=== PATIENT | female | born 1965 | race Caucasian/White ===

== ENCOUNTER → 2021-09-05 | Outpatient (CLI) | payer OTHER ==
[~2021-09-05] MED LIST: AMLO-250 PO; AMOX-358 PO; HYDR-3730 PO; IPRA3AMP31 INH; LISI-592 PO; LISI1TAB46 PO; MELO15TA39 PO; NEBU1EAC10 MC; NEBU1EAC2 MC; NF-ESOM40C PO; NYST1000 PO; ONDA4TAB8 PO; PROM25TA14 PO; RANI-613 PO; SIMV10TA PO; SIMV10TA26 PO
== END ==
LOC: ORTHO 11:20
PROVIDERS: ATTEND Orthopaedic Surgery
DX: M77.11 Lateral epicondylitis, right elbow (principal)
CPT/HCPCS: 20551

== ENCOUNTER → 2022-03-20 | Outpatient (CLI) | payer OTHER | LOC: ORTHO 09:24 | PROVIDERS: ATTEND Orthopaedic Surgery | DX: M77.11 Lateral epicondylitis, right elbow (principal) | CPT/HCPCS: 20551 ==

== ENCOUNTER → 2022-10-10 | Outpatient (CLI) | payer OTHER ==
[~2022-10-10] MED LIST changes: +SIMV-332 PO; -SIMV10TA PO
== END ==
LOC: ORTHO 09:17
PROVIDERS: ATTEND Orthopaedic Surgery
DX: M77.01 Medial epicondylitis, right elbow (principal)
CPT/HCPCS: 99213

== ENCOUNTER 2022-10-24 17:38 | Inpatient (IN) | payer OTHER ==
[~2022-10-24] VITALS: Ht 167.7 cm; Wt 97.7 kg
[2022-10-24 19:05] VITALS: BP 131/71
--- OUTSIDE RECORDS SUMMARY | 2022-10-24 19:11 | XMS REPORT | Clinical Summary ---
Author Author [facility] Organization [facility] Address Unknown Phone Unavailable Care Team Providers Care Customer Facilities Supervisor Name Role Phone PCP Unavailable Source Comments [facility] (Labor and Delivery) documents do not appear in the [facility] Allergies Not on File Medications Please verify current medications with patient. Not on file Active Problems Not on file Social History Date Tobacco Use Types Packs/Day Years Used Smoking Tobacco: Never Assessed Sex Assigned at Date Recorded Not on file Last Filed Vital Signs Not on file Plan of Treatment Health Maintenance Due Date Last Done Comments CT Colonography 1965 Colonoscopy 1965 Colorectal Cancer 1965 Screening DNA-based stool test 1965 (Cologuard) Hepatitis B Vaccine (1 of 1965 3 - 3-dose series) Mammogram 1965 Sigmoidoscopy 1965 gFOBT or FIT 1965 COVID-19 Vaccine (#1) 1965 Influenza Vaccine (#1) 2022 HPV Vaccine Aged Out No longer eligible based on patient's age to complete this topic Hepatitis A Vaccine Aged Out No longer eligible based on patient's age to complete this topic Hib Vaccine Aged Out No longer eligible based on patient's age to complete this topic IPV Vaccine Aged Out No longer eligible based on patient's age to complete this topic Meningococcal Vaccine Aged Out No longer eligib le based on patient's age to (MCV4) complete this topic Pneumococcal Vaccine: Aged Out No longer eligib le based on patient's age to Pediatrics (0 to 5 Years) complete this topic and At-Risk Patients (6 to 64 Years) Rotavirus Vaccine Aged Out No longer eligible based on patient's age to complete this topic Results Not on filefrom Last 3 Months
--- OUTSIDE RECORDS SUMMARY | 2022-10-24 19:11 | XMS REPORT | Clinical Summary ---
Author Author [facility] Organization [facility] Address Unknown Phone Unavailable Care Team Providers Care Automotive Manufacturer Name Role Phone PCP Unavailable Source Comments Some departments are not documenting in the electronic medical record. If you d o not see the information that you expected, contact Release of Information in [facility] Information Management department at [phone] for further assistan ce in locating additional records.[facility] Allergies Not on File Medications Not on file Active Problems Not on file Social History Date Tobacco Use Types Packs/Day Years Used Smoking Tobacco: Never Assessed Sex Assigned at Date Recorded Not on file Last Filed Vital Signs Not on file Plan of Treatment Health Maintenance Due Date Last Done Comments COVID-19 VACCINE (#1) 1965 HIV SCREENING 1980 DTAP/TDAP VACCINES (1 - 1983 Tdap) HEPATITIS C SCREENING 1983 PHYSICAL (COMPREHENSIVE) 1983 EXAM CERVICAL CANCER SCREENING 1986 BREAST CANCER SCREENING 2005 COLORECTAL CANCER 2010 SCREENING SHINGLES RECOMBINANT 2015 VACCINE (1 of 2) INFLUENZA VACCINE (#1) 2022 DEPRESSION SCREENING 10/14/2022 Results Not on filefrom Last 3 Months
[2022-10-24] MEDS ORDERED: MILK OF MAGNESIA 400 MG/5 ML 30 ML UDC PO PRN (19:15)
[2022-10-24] MEDS ORDERED: VANCOMYCIN INJECTION 0.1 MG in NS (IVPB) 250 ML IV SCH (19:15)
[2022-10-24] MEDS ORDERED: ONDANSETRON 4 MG/2 ML (SDV) Z0FRAN IV PRN (19:15)
[2022-10-24] MEDS ORDERED: ANTACID SUSP 30 ML UDC (MYLANTA) PO PRN (19:15)
[2022-10-24 19:38] LABS: POTASSIUM 3.4 MMOL/L (3.6-5.0)
[2022-10-24 19:39] LABS: CALCIUM 8.4 MG/DL (8.5-10.1)
[2022-10-24 19:43] LABS: CREATININE SERUM 0.75 MG/DL (0.60-1.30)
[2022-10-24] MEDS: ACETAMINOPHEN 325 MG TABLET PO PRN ×2 (19:43→23:53)
[2022-10-24] MEDS: LACTATED RINGERS 1,000 ML IV SCH (19:43)
[2022-10-24] MEDS ORDERED: VANCOMYCIN 1,750 MG/NS 500 ML IVPB IV NR ×2 (19:45)
[2022-10-24] MEDS ORDERED: VANCOMYCIN 750 MG/VIAL IV ONE (19:56)
[2022-10-24] MEDS ORDERED: VANCOMYCIN 1000 MG/VIAL ONE (19:56)
[2022-10-24] MEDS ORDERED: NS IV 500 ML 0 ML ONE (20:10)
[2022-10-24] MEDS ORDERED: oxyCODONE/APAP 5/325MG (PERCOCET 5) TABLET PO PRN ×2 (21:00→22:15)
[2022-10-24] MEDS ORDERED: oxyCODONE/APAP 5/325MG (PERCOCET 5) TABLET ONE (21:35)
[2022-10-24] MEDS ORDERED: IBUPROFEN 600 MG (MOTRIN) TAB PO ONE (22:21)
[2022-10-24] MEDS: CELECOXIB 100 MG (CeleBREX) CAP PO SCH (22:24)
[2022-10-24] MEDS: PREGABALIN 100 MG (LYRICA) CAPSULE PO SCH (22:24)
[2022-10-24] MEDS ORDERED: IBUPROFEN 600 MG (MOTRIN) TAB PO PRN ×2 (22:30→22:45)
[2022-10-24 23:10] VITALS: BP 116/59
[2022-10-25] VITALS (7 sets, daily range): BP systolic 96–134; BP diastolic 53–63
[2022-10-25] MEDS: MELATONIN 3 MG TABLET PO PRN (01:41)
[2022-10-25] MEDS: LACTATED RINGERS 1,000 ML IV SCH ×4 (05:19→23:45)
[2022-10-25 05:53] LABS: BASOPHILS % (AUTO) 0 % (0-10); HEMATOCRIT 31 % (35-52); MEAN CORPUSCULAR VOLUME 102 fL (80-99)
[2022-10-25 05:55] LABS: EOSINOPHILS # (AUTO) 0.1 10^3/uL (0.0-0.3); EOSINOPHILS % (AUTO) 1 % (0-10); HEMOGLOBIN 10.1 g/dL (11.5-16.0); LYMPHOCYTES % (AUTO) 14 % (12-44); MEAN CORPUSCULAR HEMOGLOBIN 33 pg (25-34); MEAN CORPUSCULAR HGB CONC 32 g/dL (32-36); MEAN PLATELET VOLUME 11.5 fL (9.0-12.2); MONOCYTES # (AUTO) 0.5 10^3/uL (0.0-1.0); MONOCYTES % (AUTO) 7 % (0-12); NEUTROPHILS # (AUTO) 5.6 10^3/uL (1.8-7.8); NEUTROPHILS % (AUTO) 78 % (42-75); PLATELET COUNT 83 10^3/uL (130-400); WHITE BLOOD COUNT 7.2 10^3/uL (4.3-11.0)
[2022-10-25 06:01] LABS: ALBUMIN 3.3 GM/DL (3.2-4.5); POTASSIUM 3.1 MMOL/L (3.6-5.0)
[2022-10-25 06:03] LABS: CALCIUM 8.3 MG/DL (8.5-10.1)
[2022-10-25 06:04] LABS: TOTAL PROTEIN 6.8 GM/DL (6.4-8.2)
[2022-10-25 06:06] LABS: BILIRUBIN,TOTAL 0.5 MG/DL (0.1-1.0)
[2022-10-25 06:07] LABS: CREATININE SERUM 0.97 MG/DL (0.60-1.30)
[2022-10-25] MEDS: VANCOMYCIN 1500 MG/NS 500 ML IVPB IV SCH ×4 (08:51→20:11)
[2022-10-25] MEDS: PREGABALIN 100 MG (LYRICA) CAPSULE PO SCH ×2 (08:52→20:11)
[2022-10-25] MEDS: CELECOXIB 100 MG (CeleBREX) CAP PO SCH ×2 (08:52→20:11)
--- NOTE | 2022-10-25 09:43 | History & Physical-Hospitalist ---
JESICA ROBERTSON 10/25/22 0943: History of Present Illness HPI/Chief Complaint 57 year old female with history of sjogren Syndrome, Hypertension, anxiety, ar thritis, and ongoing cellulitis with drainage of left elbow area presented to the hospital today as a transfer from [facility] for right elbow cellulitis. She reports this began originally at the beginning of September and she reports spending a few days at [facility] before being discharged on Clindamycin which she reports taking for the past month. It was beginning to improve, but she developed fever and chills yesterday as well as slightly altered mental status prior to presenting to [facility]'s ED. She reports feeling better this morning than yesterday. She is A/O x3 at this time and denies lightheadedness, Dizziness, CP, SOB, abd pain, N/V/D. She has been having a headache. Date Seen 10/25/22 Time Seen by a Provider: 09:20 Attending Physician Nicky Franklin MD PCP Admitting Physician: Kris Jean-Baptiste MD Attending Physician: Kris Jean-Baptiste MD Referring Physician Date of Admission Oct 24, 2022 at 19:07 Home Medications & Allergies Home Medications Reviewed patient Home Medication Reconciliation performed by pharmacy medication reconciliations loss control technician and/or nursing. Patients Allergies have been reviewed. Allergies Allergies Coded Allergies procaine (Verified Allergy, Unknown, 01/09/16) Past [id number]-[id number] Hx Patient Social History Tobacco Use?: Yes Tobacco type used: Cigarettes (1/2 ppd x 41 years) Smoking Status: Current Everyday Smoker Smokeless Tobacco Frequency: Never a User Use of E-Cig and/or Vaping dev: No Use of E-Cig and/or Vaping Velasquez: Never a User Substance use?: No Alcohol Use?: No Pt feels they are or have been: No Current Status Advance Directives: Unable to obtain Communicates: Verbally Primary Language: Belgian Preferred Spoken Language: Belgian Is interpretation needed?: No Implanted or Applied Medical D: None Past Medical History Surgeries: Abdominal (reports multiple esophageal procedures for ruptured esophagus in the past), Section, Gallbladder (cholecystectomy) Pneumonia High Cholesterol, Hypertension Gastroesophageal Reflux Adverse Reaction/Blood Tranf: No Review of Systems Constitutional: chills, fever EENTM: No hearing loss, No vision loss Respiratory: No cough, No dyspnea on exertion, No hemoptysis, No short of breath Cardiovascular: No chest pain, No edema Gastrointestinal: No abdominal pain, No constipation, No diarrhea, No nausea, No vomiting Genitourinary: No dysuria, No hematuria Musculoskeletal: joint pain Skin: change in color (redness/swelling of right elbow) Psychiatric/Neurological: Anxiety Physical Exam Physical Exam Vital Signs Vital Signs - First Documented 10/24/22 19:05 Temp 39.0 Pulse 96 Resp 20 B/P (MAP) 131/71 (91) Pulse Ox 94 O2 Delivery Room Air Capillary Refill : Height, Weight, BMI Height: 5'6" Weight: 210lbs. 3.2oz. [id number]; 34.66 BMI Method:Stated General Appearance: No Apparent Distress, WD/WN Eyes: Bilateral Eye PERRL, Bilateral Eye EOMI HEENT: PERRL/EOMI, Pharynx Normal, Moist Mucous Membranes Neck: Non Tender, Supple Respiratory: Chest Non Tender, No Accessory Muscle Use, No Respiratory Distress, Wheezing Cardiovascular: Regular Rate, Rhythm, No Murmur, Normal Peripheral Pulses Gastrointestinal: Normal Bowel Sounds, Non Tender, Soft Back: No CVA Tenderness, No Vertebral Tenderness Extremity: Normal Capillary Refill, Non Tender, No Calf Tenderness Neurologic/Psychiatric: Alert, Oriented x3, No Motor/Sensory Deficits, Normal Mood/Affect, bankruptcy law specialist II-XII Norm as Tested Skin: Diaphoresis, Erythema (erythema and swelling of right elbow with small area of serous drainage) Lymphatic: No Adenopathy Results Results/Procedures Labs Laboratory Tests 10/24/22 19:22 10/25/22 05:25 Patient resulted labs reviewed. Assessment/Plan Assessment and Plan Severe sepsis secondary to Cellulitis of Right Elbow Patient was febrile, tachycardic, and had Lactic acidosis at [place] prior to transfer here. On going cellulitis of right elbow for going on a month and a half. WBC today of 7.2 Patient has had a fever as high as 40 degrees celsius since arriving, and BP as low of 96/57 mmHg. Vancomycin 1.5g IV BID. previous wond cultures have only grown MRSA. Ortho Consulted. Dr. Marte plans to operate tomorrow to open and clean wound and sinus tract. Hypokalemia K+Cl 50ml IV QD + K+Cl 40mEq PO QD. recheck tomorrow Anemia Hgb of 10.1 today. Pt. reports anemia is secondary to hydroxychloroquine she was taking for Sjogren Syndrome and that she recently stopped taking it per her doctors recommendation. Sjogren Syndrome Managed outpatient by Dr. Briscoe through [place] per patient. see above. Hypertension Takes Losartan 50mg QD at home. Will hold BP medications at this time given BP of 96/57 mmHg. Anxiety Takes Sertraline 100mg PO QD at home. Will continue Arthritis Will restart home meds of celecoxib 200mg QD and pregabalin 100mg BID. Smoking history 20.5 pack year smoking history. Patient denies needing nicotine patch. Denies history of COPD. Counseled patient on benefits of quitting. May benefit from albuterol nebulizer treatment given wheezing on exam. KRIS JEAN-BAPTISTE MD 10/25/22 2071: Assessment/Plan Admission Diagnosis Severe Sepsis Admission Status: Inpatient Order (span 2 midnights) Reason for Inpatient Admission: see below Assessment and Plan Patient presented to outside emergency department due to recurrent cellulitis of right elbow after failing outpatient antibiotics. She was febrile and tachycardic with a lactic acidosis of 2.2. She had actually been admitted at that facility last month and received multiple days of IV antibiotics and was referred to orthopedic surgery as an outpatient. She had seen Dr. Marte and had continued on oral antibiotics but despite this her cellulitis returned. She was transferred here for further management and orthopedic consultation while inpatient. This morning she reports feeling about the same but having pain in her elbow. She states Dr. MARTE is already seen her and is planning on surgery tomorrow morning. We will continue IV antibiotics and adjust her pain regimen. Await cultures and sensitivities from the operating room to further tailor antibiotics. Fever broke this AM. Will DC ibuprofen as she is on Celebrex and requeests to continue this. Will resume other home meds as appropriate. NPO after midnight. She was wheezing slightly and had a cough so will add MAT protocol. Is a multiple pack year history smoker but denies any lung issues from this and states wheezing clears with cough. Supervisory-Addendum Brief Verification & Attestation Participated in pt care: history, MDM, physical Personally performed: exam, history, MDM, supervision of care Care discussed with: Medical Student Procedures: n/a Results interpretation: Verified all documentation Verification and Attestation of Medical Student E/M Service A medical student performed and documented this service in my presence. I reviewed and verified all information documented by the medical student and made modifications to such information, when appropriate. I personally performed the physical exam and medical decision making. Kris Jean-Baptiste, Oct 25, 2022,14:07 JESICA ROBRETSON Oct 25, 2022 09:43 KRIS JEAN-BAPTISTE MD Oct 25, 2022 13:57
--- NOTE | 2022-10-25 11:29 | Consultation - Ortho ---
Consult - Ortho Subjective Date of Exam 10/25/22 Chief Complaint right arm draining/pain HPI/Events since last exam patient known to me from office, had a prior "lancing" of an area on her arm, history of HO in forearm/elbow, had had constant drainage, recurrent cellulitis Medical, Surgical History see admit Social History see admit Family History see admit Review of Systems - Allergies: Coded Allergies: procaine (Verified Allergy, Unknown, 01/09/16) Home Meds Active Scripts Nebulizer (Nebulizer W/Compressor) 1 Pkt Each, 1 EACH MC UD, #1 Prov:CHARLENE BUSTILLO DO 01/18/16 Nebulizer (Nebulizer With Adult Mask) 1 Pkt Each, 1 EACH MC UD, #1 Prov:CHARLENE BUSTILLO DO 01/18/16 Nebulizer (Nebulizer W/Compressor) 1 Pkt Each, 1 EACH MC UD for COPD, #1 Prov:CHARLENE BUSTILLO DO 01/18/16 Nebulizer (Nebulizer With Adult Mask) 1 Pkt Each, 1 EACH MC UD, #1 Prov:CHARLENE BUSTILLO DO 01/18/16 Amoxicillin/Potassium Clav (Augmentin 875-125 Tablet) 1 Each Tablet, 1 EACH PO BID, #14 TAB Prov:CHARLENE BUSTILLO DO 01/18/16 Amlodipine Besylate (Amlodipine Besylate) 5 Mg Tablet, 5 MG PO DAILY, #30 TAB Prov:CHARLENE BUSTILLO DO 01/18/16 Ipratropium/Albuterol Sulfate (Iprat-Albut 0.5-3(2.5) mg/3 ml) 3 Ml Ampul.neb, 3 ML INH RTQ4HR, #90 INHALER 1 Refill Prov:CHARLENE BUSTILLO DO 01/18/16 Nystatin (Nystatin) 100,000 Unit/1 Ml Oral.susp, 5 ML PO Q6HR, #8 ML 1 Refill Prov:CHARLENE BUSTILLO DO 01/18/16 Hydrocodone/Acetaminophen (Lortab 7.5-325 mg Tablet) 1 Each Tablet, 1 TAB PO Q6H PRN for PAIN, #30 Prov:CHARLENE BUSTILLO DO 01/18/16 Reported Medications Ranitidine HCl (Zantac) 150 Mg Tablet, 150 MG PO BID 01/10/16 Simvastatin (Simvastatin) 10 Mg Tablet, 10 MG PO HS 01/10/16 Lisinopril/Hydrochlorothiazide (Lisinopril-Hctz 20-12.5 mg Tab) 1 Each Tablet, 1 TAB PO DAILY 01/10/16 Ondansetron (Zofran Odt) 4 Mg Tab.rapdis, 4 MG PO Q6H PRN for NAUSEA/VOMITING 01/09/16 Meloxicam (Meloxicam) 15 Mg Tablet, 15 MG PO DAILY 01/09/16 Esomeprazole Magnesium (Nexium) 40 Mg Cap, 40 MG PO DAILY 01/09/16 Objective Exam Right arm: erythematous around posterior aspect of elbow and down forearm; has formed sinus tract in forearm with continued chalky drainage Vital Signs Vital Signs Date Time Temp Pulse Resp B/P (MAP) Pulse Ox O2 Delivery O2 Flow Rate FiO2 10/25/22 11:22 37.4 72 18 98/59 (72) 92 Room Air 10/25/22 07:41 36.6 61 18 96/57 (70) 90 Room Air 10/25/22 04:59 37.3 71 20 103/53 (70) 92 Room Air 10/25/22 00:23 38.4 10/24/22 23:53 38.9 10/24/22 23:10 38.9 89 20 116/59 (78) 91 Room Air 10/24/22 22:23 40.0 10/24/22 20:13 38.6 10/24/22 19:43 39.0 10/24/22 19:20 94 Room Air 10/24/22 19:05 39.0 96 20 131/71 (91) 94 Room Air I & O 10/25/22 07:00 Intake Total 1867.5 ml Output Total 300 ml Balance 1567.5 ml Lab Results Laboratory Tests 10/24/22 19:22: Sodium Level 137, Potassium Level 3.4L, Chloride Level 109H, Carbon Dioxide Level 17L, Anion Gap 11, Blood Urea Nitrogen 11, Creatinine 0.75, Estimat Glomerular Filtration Rate 93, BUN/Creatinine Ratio 15, Glucose Level 104, Lactic Acid Level 1.39, Calcium Level 8.4L 10/25/22 05:25: Sodium Level 137, Potassium Level 3.1L, Chloride Level 108H, Carbon Dioxide Level 19L, Anion Gap 10, Blood Urea Nitrogen 16, Creatinine 0.97, Estimat Glomerular Filtration Rate 68, BUN/Creatinine Ratio 16, Glucose Level 99, Calcium Level 8.3L, White Blood Count 7.2, Red Blood Count 3.06L, Hemoglobin 10.1L, Hematocrit 31L, Mean Corpuscular Volume 102H, Mean Corpuscular Hemoglobin 33, Mean Corpuscular Hemoglobin Concent 32, Red Cell Distribution Width 15.9H, Platelet Count 83L, Mean Platelet Volume 11.5, Immature Granulocyte % (Auto) 1, Neutrophils (%) (Auto) 78H, Lymphocytes (%) (Auto) 14, Monocytes (%) (Auto) 7, Eosinophils (%) (Auto) 1, Basophils (%) (Auto) 0, Neutrophils # (Auto) 5.6, Lymphocytes # (Auto) 1.0, Monocytes # (Auto) 0.5, Eosinophils # (Auto) 0.1, Basophils # (Auto) 0.0, Immature Granulocyte # (Auto) 0.1, Percent Immature Platelet Fraction 6.3, Corrected Calcium 8.9, Total Bilirubin 0.5, Aspartate Amino Transf (AST/SGOT) 19, Alanine Aminotransferase (ALT/SGPT) 13, Alkaline Phosphatase 58, Total Protein 6.8, Albumin 3.3 Assessment and Plan Assessment Right forearm abscess with sinus tract Problem List Right forearm abscess with sinus tract Plan Will proceed with incision and drainage in AM. Plan for closure of the sinus tract. Discussed procedure with the patient. Will obtain cultures at that time. Final Diagonsis Right forearm abscess with sinus tract Level of the visit: Level 3 (preop) ANGELY MARTE MD Oct 25, 2022 11:29
[2022-10-25] MEDS: fentaNYL INJ 100 MCG/2 ML AMP IVP PRN ×2 (15:37→20:16)
[2022-10-25] MEDS ORDERED: PREG100C55 PO (15:57)
[2022-10-25] MEDS ORDERED: CELE100C84 PO (15:57)
[2022-10-25] MEDS ORDERED: LOSA50TA63 PO (15:57)
[2022-10-25] MEDS ORDERED: OXYC1TAB11 PO (15:57)
[2022-10-25] MEDS ORDERED: FURO20TA4 PO (15:57)
[2022-10-25] MEDS ORDERED: CHOL10004 PO (15:57)
[2022-10-25] MEDS ORDERED: SERT-414 PO (15:57)
[2022-10-25] MEDS ORDERED: OMEP40CA6 PO (15:57)
[2022-10-25] MEDS ORDERED: POTA8CAP20 PO (15:57)
[2022-10-25] MEDS ORDERED: AMLO2.5T4 PO (15:57)
[2022-10-25] MEDS ORDERED: CYAN500T8 PO (15:57)
[2022-10-25] MEDS ORDERED: NF-PILO5T PO ×2 (15:57)
[2022-10-25] MEDS: ACETAMINOPHEN 325 MG TABLET PO PRN ×2 (16:21→23:44)
[2022-10-25] MEDS: oxyCODONE/APAP 5/325MG (PERCOCET 5) TABLET PO PRN ×2 (16:26→23:02)
[2022-10-26] VITALS (13 sets, daily range): BP systolic 106–147; BP diastolic 51–77
[2022-10-26] MEDS: fentaNYL INJ 100 MCG/2 ML AMP IVP PRN ×5 (00:59→22:51)
[2022-10-26] MEDS: MELATONIN 3 MG TABLET PO PRN (01:02)
[2022-10-26] MEDS: LACTATED RINGERS 1,000 ML IV SCH ×3 (06:06→16:36)
[2022-10-26 06:11] LABS: BASOPHILS % (AUTO) 0 % (0-10); EOSINOPHILS # (AUTO) 0.1 10^3/uL (0.0-0.3); EOSINOPHILS % (AUTO) 2 % (0-10); HEMATOCRIT 28 % (35-52); HEMOGLOBIN 9.2 g/dL (11.5-16.0); LYMPHOCYTES # (AUTO) 1.2 10^3/uL (1.0-4.0); LYMPHOCYTES % (AUTO) 18 % (12-44); MEAN CORPUSCULAR HEMOGLOBIN 34 pg (25-34); MEAN CORPUSCULAR HGB CONC 33 g/dL (32-36); MEAN CORPUSCULAR VOLUME 103 fL (80-99); MEAN PLATELET VOLUME 11.7 fL (9.0-12.2); MONOCYTES # (AUTO) 0.7 10^3/uL (0.0-1.0); MONOCYTES % (AUTO) 10 % (0-12); NEUTROPHILS # (AUTO) 4.7 10^3/uL (1.8-7.8); NEUTROPHILS % (AUTO) 70 % (42-75); PLATELET COUNT 69 10^3/uL (130-400); WHITE BLOOD COUNT 6.7 10^3/uL (4.3-11.0)
[2022-10-26 06:27] LABS: ALBUMIN 3.1 GM/DL (3.2-4.5)
[2022-10-26 06:28] LABS: POTASSIUM 3.1 MMOL/L (3.6-5.0)
[2022-10-26 06:29] LABS: CALCIUM 8.7 MG/DL (8.5-10.1)
[2022-10-26 06:30] LABS: TOTAL PROTEIN 6.6 GM/DL (6.4-8.2)
[2022-10-26 06:32] LABS: BILIRUBIN,TOTAL 0.3 MG/DL (0.1-1.0)
[2022-10-26 06:34] LABS: CREATININE SERUM 0.92 MG/DL (0.60-1.30)
[2022-10-26] MEDS ORDERED: SEVOFLURANE (ULTANE) 15 ML INHAL SOLN ONE ×2 (07:35→09:50)
[2022-10-26] MEDS ORDERED: MIDAZOLAM 2 MG/2 ML (VERSED) VIAL ONE (07:35)
[2022-10-26] MEDS ORDERED: ONDANSETRON 4 MG/2 ML (SDV) Z0FRAN ONE (07:35)
[2022-10-26] MEDS ORDERED: proPOfol 200 MG/20 ML (DIPRIVAN) VIAL IV ONE (07:35)
[2022-10-26] MEDS ORDERED: LIDOCAINE PF 2% 5 ML (XYLOCAINE) VIAL ONE (07:35)
[2022-10-26] MEDS ORDERED: fentaNYL INJ 100 MCG/2 ML AMP ONE (07:35)
[2022-10-26] MEDS ORDERED: TROUGH ORDER-PHARMACY XX NR (08:00)
[2022-10-26] MEDS ORDERED: LACTATED RINGERS 1,000 ML IV PRN (08:30)
[2022-10-26] MEDS ORDERED: KETOROLAC 30 MG/ML VIAL ONE (09:48)
--- NOTE | 2022-10-26 09:58 | Operative Report - Ortho ---
Operative Report Surgeon (s)/Supervisor Waterworks (s) Surgeon ANGELY MARTE MD Supervisor Waterworks n/a Pre-Operative Diagnosis Right Forearm Abscess with Draining Sinus Tract Post-Operative Diagnosis same Operative Report Date of Procedure: Oct 26, 2022 Name of Procedure Performed: Incision and Drainage of Right Forearm Abscess Description & Findings After obtaining informed consent and marking the patient in the preop holding area, the patient was taken to the operating room and general anesthesia was induced. Surgical timeout was taken. The right upper extremity was prepped and draped in the usual sterile fashion. Incision was made extending the area around the sinus tract and the sinus tract was excised. There was return of purulent material; swab culture was sent. Rongeur and currette were used to debride the wall of the abscess. There were calcifications in the soft tissue which were also excised. Pulsatile lavage was utilized to irrigate the cavity with 3 L of normal saline. Attention was then turned to a more proximal site that had a raised whitish area; this was ellipsed and had immediate return of purlent material. The incision was extended. A swab culture was obtained. This area was also debrided with currette and rongeur. Pulsatile lavage was used to irrigate this area with 3 L of normal saline as well. The wounds were closed with 3-0 nylon suture. Wounds were dressed with xeroform, 4x4s, ABD, Kerlix, and KURTIS wraps. Patient tolerated the procedure well and was stable to the recovery room. Anesthesia Type General Estimated Blood Loss 100 mL Specimen(s) collected/removed Swab culture x2 ANGELY MARTE MD Oct 26, 2022 09:58
[2022-10-26] MEDS ORDERED: ONDANSETRON 4 MG/2 ML (SDV) Z0FRAN IVP PRN (10:00)
[2022-10-26] MEDS: VANCOMYCIN 1500 MG/NS 500 ML IVPB IV SCH ×4 (10:00→19:52)
[2022-10-26] MEDS ORDERED: HYDROmorphone 2 MG/ML VIAL (DILAUDID) IV ONE (10:00)
[2022-10-26] MEDS ORDERED: RT-ALBUTEROL SULF 2.5 MG/3 ML PRE-MIX VIAL ONE (10:12)
[2022-10-26] MEDS ORDERED: RT-ALBUTEROL SULF 2.5 MG/3 ML PRE-MIX VIAL INH ONE (11:00)
[2022-10-26] MEDS: CELECOXIB 100 MG (CeleBREX) CAP PO SCH ×2 (11:27→19:52)
[2022-10-26] MEDS: oxyCODONE/APAP 5/325MG (PERCOCET 5) TABLET PO PRN ×2 (11:28→17:10)
[2022-10-26] MEDS: PREGABALIN 100 MG (LYRICA) CAPSULE PO SCH ×2 (11:28→19:52)
[2022-10-26] MEDS ORDERED: PATIENT MAY USE OWN MED,SINGLE MED PO SCH ×2 (11:45)
[2022-10-26] MEDS ORDERED: NON-FORMULARY MEDICATION 1 EA EA (Pilocarpine (Salagen) 5 MG) PO PRN (12:00)
--- NOTE | 2022-10-26 12:28 | Anesthesia-General Post-Op ---
General Patient Condition Mental Status/LOC: Same as Preop Cardiovascular: Satisfactory Nausea/Vomiting: Absent Respiratory: Satisfactory Pain: Controlled Complications: Absent Post Op Complications Complications None Follow Up Care/Instructions Patient Instructions None needed. Anesthesia/Patient Condition Patient Condition Patient is doing well, no complaints, stable vital signs, no apparent adverse anesthesia problems. No complications reported per nursing. D/C home per [facility] Criteria: Yes LIANNE SHAFER CRNA Oct 26, 2022 12:28
[2022-10-26] MEDS ORDERED: PILOCARPINE 5 MG TABLET PO PRN (12:45)
[2022-10-26] MEDS: PILOCARPINE 5 MG TABLET PO SCH ×2 (12:46→17:10)
[2022-10-26] MEDS ORDERED: NON-FORMULARY MEDICATION 1 EA EA (Pilocarpine (Salagen) 5 MG) PO SCH (13:00)
--- NOTE | 2022-10-26 13:00 | Progress Note - Hospitalist ---
JESICA ROBERTSON 10/26/22 1300: Subjective HPI/CC On Admission 57 year old female with history of sjogren Syndrome, Hypertension, anxiety, arthritis, and ongoing cellulitis with drainage of left elbow area presented to the hospital today as a transfer from [facility] for right elbow cellulitis. She reports this began originally at the beginning of September and she reports spending a few days at [facility] before being discharged on Clindamycin w hich she reports taking for the past month. It was beginning to improve, but she developed fever and chills yesterday as well as slightly altered mental status prior to presenting to [place]'s ED. She reports feeling better this morning than yesterday. She is A/O x3 at this time and denies lightheadedness, Dizziness, CP, SOB, abd pain, N/V/D. She has been having a headache. Subjective/Events-last exam Patient was seen in her room shortly upon returning from her procedure this morning. Her course yesterday afternoon and overnight was largely uneventful. This morning Dr. Porras took her to the OR to open the wound on her right arm, during which he sent swabs for culture with results pending. Pt. continues to be on Vancomycin IV for the wound. Patient was still recovering from anesthesia at this time but reported feeling okay at that time with no headache, CP, SOB, abd pain, N/V/D. She reported being hungry. Review of Systems General: No Chills; Fatigue HEENT: No Head Aches, No Visual Changes Pulmonary: No Dyspnea, No Cough Cardiovascular: No: Chest Pain, Palpitations Gastrointestinal: No: Nausea, Vomiting, Abdominal Pain Genitourinary: No Dysuria, No Frequency Musculoskeletal: arm pain (right elbow) Neurological: Weakness, Numbness Focused Exam Lactate Level 10/24/22 19:22: Lactic Acid Level 1.39 Objective Exam Vital Signs Vital Signs Date Time Temp Pulse Resp B/P (MAP) Pulse Ox O2 Delivery O2 Flow Rate FiO2 10/26/22 11:50 36.2 67 16 126/73 (90) 97 Nasal Cannula 3.00 Capillary Refill : Less Than 3 Seconds General Appearance: No Apparent Distress, WD/WN, Other (Patient appeared tired) HEENT: No Moist Mucous Membranes Neck: Non Tender, Supple Respiratory: Chest Non Tender, Lungs Clear, No Accessory Muscle Use, No Respiratory Distress Cardiovascular: Regular Rate, Rhythm, No Murmur, Normal Peripheral Pulses Gastrointestinal: Non Tender, Soft, Other (decreased bowel sounds) Extremity: Normal Capillary Refill, Non Tender, No Calf Tenderness, No Pedal Edema, Other (Patients right elbow and forearm were wrapped from the mornings procedure. It appeared dry and intact with no discharge at that time.) Neurologic/Psychiatric: Alert, No Motor/Sensory Deficits, Normal Mood/Affect, wool dyer II-XII Norm as Tested, Other Skin: Normal Color, Warm/Dry Lymphatic: No Adenopathy Results/Procedures Lab Laboratory Tests 10/26/22 05:58 Patient resulted labs reviewed. Assessment/Plan Assessment and Plan Assess & Plan/Chief Complaint Severe sepsis secondary to Cellulitis of Right Elbow Patient was febrile, tachycardic, and had Lactic acidosis at [place] prior to transfer here 10/25. On-going cellulitis of right elbow for going on a month and a half. 10/26 WBC 6.7, minimally improved from 7.2 on 10/25 Patient has had a fever as high as 40 degrees celsius since arriving, and BP as low of 96/57 mmHg. Fever has resolved and BP has been improving. Vancomycin 1.5g IV BID. previous wound cultures have only grown MRSA. 10/26 Dr. Porras took patient to the OR to open, debride, and irrigate wound. Swabs were sent for culture. Will adjust abx if needed pending results. Hypokalemia 10/26 K+ of 3.1. K+Cl 50ml IV QD + K+Cl 40mEq PO QD and monitor Anemia 10/26 hgb 9.2 which is down from 10.1 yesterday. Pt. initially reported anemia secondary to hydroxychloroquine she was taking for Sjogren Syndrome and that she recently stopped taking it per her doctors recommendation. Todays worsening of anemia likely combination of dilutional from IV fluids and secondary to wound. Sjogren Syndrome Managed outpatient by Dr. Briscoe through [place] per patient. Will allow pt. to start taking Pilocarpine 5mg PO TID from home meds for dry mouth. Hypertension Takes Losartan 50mg QD at home. Will hold BP medications at this time given BP of 96/57 mmHg. Anxiety Takes Sertraline 100mg PO QD at home. Will continue Arthritis Will restart home meds of celecoxib 200mg QD and pregabalin 100mg BID. Smoking history 20.5 pack year smoking history. Patient denies needing nicotine patch. Denies history of COPD. Counseled patient on benefits of quitting. May benefit from albuterol nebulizer treatment given wheezing on exam. KRIS JEAN-BAPTISTE MD 10/26/22 1405: Assessment/Plan Assessment and Plan Assess & Plan/Chief Complaint Patient reports doing ok. Asking for food but still very sleepy. Just returned from the PACU. Advised her that she needs to wake up more before food. Discussed with her daughter plan to keep in the hospital for cultures through the weekend. Supervisory-Addendum Brief Verification & Attestation Participated in pt care: history, MDM, physical Personally performed: exam, history, MDM, supervision of care Care discussed with: Medical Student Procedures: n/a Results interpretation: Verified all documentation Verification and Attestation of Medical Student E/M Service A medical student performed and documented this service in my presence. I reviewed and verified all information documented by the medical student and made modifications to such information, when appropriate. I personally performed the physical exam and medical decision making. Kris Jean-Baptiste, Oct 26, 2022,13:56 JESICA ROBERTSON Oct 26, 2022 13:00 KRIS JEAN-BAPTISTE MD Oct 26, 2022 14:05
[2022-10-26] MEDS: POTASSIUM CL 10MEQ/50ML IVPB 50 ML IV SCH ×2 (13:18→14:21)
[2022-10-26] MEDS ORDERED: PREGABALIN 100 MG (LYRICA) CAPSULE PO SCH (21:00)
[2022-10-27] MEDS: fentaNYL INJ 100 MCG/2 ML AMP IVP PRN ×3 (01:43→12:57)
[2022-10-27] MEDS: LACTATED RINGERS 1,000 ML IV SCH ×2 (03:15→10:12)
[2022-10-27 03:51] VITALS: BP 119/63
[2022-10-27 05:58] LABS: BASOPHILS % (AUTO) 0 % (0-10); EOSINOPHILS % (AUTO) 0 % (0-10); HEMOGLOBIN 8.6 g/dL (11.5-16.0); MONOCYTES % (AUTO) 5 % (0-12)
[2022-10-27 05:59] LABS: HEMATOCRIT 26 % (35-52); LYMPHOCYTES # (AUTO) 0.8 10^3/uL (1.0-4.0); LYMPHOCYTES % (AUTO) 16 % (12-44); MEAN CORPUSCULAR HEMOGLOBIN 34 pg (25-34); MEAN CORPUSCULAR HGB CONC 33 g/dL (32-36); MEAN CORPUSCULAR VOLUME 103 fL (80-99); MEAN PLATELET VOLUME 11.9 fL (9.0-12.2); MONOCYTES # (AUTO) 0.3 10^3/uL (0.0-1.0); NEUTROPHILS % (AUTO) 78 % (42-75); PLATELET COUNT 70 10^3/uL (130-400); WHITE BLOOD COUNT 5.1 10^3/uL (4.3-11.0)
[2022-10-27 06:05] LABS: SMEAR SCAN COMMENT YES
[2022-10-27] MEDS: PILOCARPINE 5 MG TABLET PO SCH ×4 (06:07→18:31)
[2022-10-27] MEDS: oxyCODONE/APAP 5/325MG (PERCOCET 5) TABLET PO PRN ×4 (06:10→20:16)
[2022-10-27 06:17] LABS: ALBUMIN 3.2 GM/DL (3.2-4.5); BILIRUBIN,TOTAL 0.3 MG/DL (0.1-1.0); CALCIUM 9.2 MG/DL (8.5-10.1); CREATININE SERUM 0.78 MG/DL (0.60-1.30); POTASSIUM 3.7 MMOL/L (3.6-5.0); TOTAL PROTEIN 6.8 GM/DL (6.4-8.2)
[2022-10-27 07:45] VITALS: BP 125/63
[2022-10-27] MEDS ORDERED: NON-FORMULARY MEDICATION 1 EA EA (Omeprazole 40 MG) PO SCH (09:00)
--- NOTE | 2022-10-27 09:50 | Progress Note - Hospitalist ---
JESICA ROBERTSON 10/27/22 0950: Subjective HPI/CC On Admission Date Seen by Provider: Oct 27, 2022 Time Seen by Provider: 09:05 57 year old female with history of sjogren Syndrome, Hypertension, anxiety, arthritis, and ongoing cellulitis with drainage of left elbow area presented to the hospital today as a transfer from [facility] for right elbow cellulitis. She reports this began originally at the beginning of September and she reports spending a few days at [facility] before being discharged on Clindamycin wh ich she reports taking for the past month. It was beginning to improve, but she developed fever and chills yesterday as well as slightly altered mental status prior to presenting to [place]'s ED. She reports feeling better this morning than yesterday. She is A/O x3 at this time and denies lightheadedness, Dizziness, CP, SOB, abd pain, N/V/D. She has been having a headache. Subjective/Events-last exam Patient was awake and alert sitting in bed when seen this morning. She reports slight improvement since yesterday. She is still having intermittent chills and rates her right arm pain as 7/10. She is currently receiving fentanyl 35mcg Q1h PRN and Percocet 5/325mg Q6 PRN for pain control which she reports helps briefly. one of the two wound cultures initial report showed Gram (+) cocci with final results still pending at this time. Of note her Hgb today is 8.6 which is decreased from 9.2 on 10/26 and 10.1 on 10/25. Patient denies chest pain, palpitations, SOB, abd pain, N/V/D, dysuria at this time. She has not had a BM since admission but is urinating well. Review of Systems General: Chills, Fatigue HEENT: Head Aches; No Visual Changes Pulmonary: No Dyspnea; Cough (mild) Cardiovascular: No: Chest Pain, Palpitations, Orthopnea Gastrointestinal: No: Nausea, Vomiting, Abdominal Pain, Diarrhea Genitourinary: No Dysuria, No Frequency Musculoskeletal: arm pain (7/10 right arm pain) Neurological: No: Weakness, Numbness Focused Exam Lactate Level 10/24/22 19:22: Lactic Acid Level 1.39 Objective Exam Vital Signs Vital Signs Date Time Temp Pulse Resp B/P (MAP) Pulse Ox O2 Delivery O2 Flow Rate FiO2 10/27/22 11:29 36.3 58 20 122/71 (88) 96 Room Air 10/26/22 11:50 3.00 Capillary Refill : Less Than 3 Seconds General Appearance: No Apparent Distress, WD/WN, Obese HEENT: PERRL/EOMI, Pharynx Normal, Moist Mucous Membranes Neck: Non Tender, Supple Respiratory: Chest Non Tender, No Accessory Muscle Use, No Respiratory Distress, Wheezing (mild wheezing in RLL) Cardiovascular: Regular Rate, Rhythm, No Murmur, Normal Peripheral Pulses Gastrointestinal: Normal Bowel Sounds, Non Tender, Soft Extremity: Normal Capillary Refill, Normal Range of Motion, No Calf Tenderness, No Pedal Edema, Other (Right elbow/forearm bandage intact with small amount or serosanguinous drainage present. ) Neurologic/Psychiatric: Alert, Oriented x3, No Motor/Sensory Deficits, Normal Mood/Affect Skin: Normal Color, Warm/Dry Lymphatic: No Adenopathy Results/Procedures Lab Laboratory Tests 10/27/22 05:25 Patient resulted labs reviewed. Assessment/Plan Assessment and Plan Assess & Plan/Chief Complaint Severe sepsis secondary to Cellulitis of Right Elbow Patient was febrile, tachycardic, and had Lactic acidosis at [place] prior to transfer here 10/25. On-going cellulitis of right elbow for going on a month and a half. 10/27 WBC 5.1 Patient has had a fever as high as 40 degrees celsius since arriving, and BP as low of 96/57 mmHg. Fever has resolved and BP has been improving. Day 3 Vancomycin 1.5g IV BID. previous wound cultures have only grown MRSA. 10/26 Dr. Porras took patient to the OR to open, debride, and irrigate wound. Swabs were sent for culture. Initial gram stain showed Gram (+) cocci with final results pending. Will adjust abx if needed pending results. Hypokalemia 10/27 K+ of 3.7. K+Cl 50ml IV QD + K+Cl 40mEq PO QD and monitor Anemia 10/27 hgb 8.6 which is down from 9.2 yesterday. Pt. initially reported anemia secondary to hydroxychloroquine she was taking for Sjogren Syndrome and that she recently stopped taking it per her doctors recommendation. Todays worsening of anemia likely combination of dilutional from IV fluids and secondary to wound drainage and procedure. Patient reports normal colonoscopy in 2014 and denies hematochezia or melena. If Hgb continues to drop then will begin to look for secondary causes. Discontinuing IV fluids at this time Sjogren Syndrome Managed outpatient by Dr. Briscoe through [place] per patient. Pilocarpine 5mg PO TID from home meds for dry mouth. Hypertension Takes Losartan 50mg QD at home. Will hold BP medications at this time given BP of 96/57 mmHg. Anxiety Takes Sertraline 100mg PO QD at home. Will continue Arthritis Will restart home meds of celecoxib 200mg QD and pregabalin 100mg BID. Smoking history 20.5 pack year smoking history. Patient denies needing nicotine patch. Denies history of COPD. Counseled patient on benefits of quitting. May benefit from albuterol nebulizer treatment given wheezing on exam. Will recommend discussing PFTs with PCP upon discharge KRIS JEAN-BAPTISTE MD 10/27/22 1105: Assessment/Plan Assessment and Plan Assess & Plan/Chief Complaint Pt reports doing well. No complaints. Still has postopertive pain but tolerable though not lasting long enough. Increased frequency to q4H on oral pain meds. W ould like to restart her lasix so this was ordered and IVF Dc-ed. OT ordered. Await cultures results from surgery. Supervisory-Addendum Brief Verification & Attestation Participated in pt care: history, MDM, physical Personally performed: exam, history, MDM, supervision of care Care discussed with: Medical Student Procedures: n/a Results interpretation: Verified all documentation Verification and Attestation of Medical Student E/M Service A medical student performed and documented this service in my presence. I reviewed and verified all information documented by the medical student and made modifications to such information, when appropriate. I personally performed the physical exam and medical decision making. Kris Jean-Baptiste, Oct 27, 2022,11:05 JESICA ROBERTSON Oct 27, 2022 09:50 KRIS JEAN-BAPTISTE MD Oct 27, 2022 11:05
[2022-10-27] MEDS: PANTOPRAZOLE 40 MG (PROTONIX) TAB PO SCH (10:10)
[2022-10-27] MEDS: PREGABALIN 100 MG (LYRICA) CAPSULE PO SCH ×2 (10:10→20:15)
[2022-10-27] MEDS: KCL 8 MEQ (MICRO K) TABLET PO SCH (10:10)
[2022-10-27] MEDS: CELECOXIB 100 MG (CeleBREX) CAP PO SCH ×2 (10:10→20:16)
[2022-10-27] MEDS: SERTRALINE 100 MG (ZOLOFT) TAB PO SCH (10:10)
[2022-10-27] MEDS: VANCOMYCIN 1500 MG/NS 500 ML IVPB IV SCH ×4 (10:11→20:15)
[2022-10-27] MEDS: VITAMIN D3 25 MCG (1,000 UNITS) TABLET PO SCH (10:11)
[2022-10-27 11:29] VITALS: BP 122/71
[2022-10-27] MEDS: FUROSEMIDE 20 MG (LASIX) TAB PO SCH (12:58)
[2022-10-27 15:48] VITALS: BP 132/72
[2022-10-27 19:10] VITALS: BP 127/74
[2022-10-27] MEDS: RT-ALBUTEROL/IPRATROPIUM 3 ML (DUONEB) VIAL INH PRN (20:29)
[2022-10-27 23:19] VITALS: BP 144/68
[2022-10-28] VITALS (7 sets, daily range): BP systolic 122–145; BP diastolic 55–71
[2022-10-28] MEDS: oxyCODONE/APAP 5/325MG (PERCOCET 5) TABLET PO PRN ×3 (03:58→10:23)
[2022-10-28] MEDS: PILOCARPINE 5 MG TABLET PO SCH ×3 (05:50→18:05)
[2022-10-28 06:06] LABS: BASOPHILS % (AUTO) 0 % (0-10); EOSINOPHILS # (AUTO) 0.1 10^3/uL (0.0-0.3); EOSINOPHILS % (AUTO) 2 % (0-10); HEMOGLOBIN 8.7 g/dL (11.5-16.0); MEAN CORPUSCULAR VOLUME 104 fL (80-99)
[2022-10-28 06:08] LABS: HEMATOCRIT 27 % (35-52); LYMPHOCYTES % (AUTO) 21 % (12-44); MEAN CORPUSCULAR HEMOGLOBIN 33 pg (25-34); MEAN CORPUSCULAR HGB CONC 32 g/dL (32-36); MEAN PLATELET VOLUME 12.3 fL (9.0-12.2); MONOCYTES # (AUTO) 0.3 10^3/uL (0.0-1.0); MONOCYTES % (AUTO) 7 % (0-12); NEUTROPHILS # (AUTO) 3.2 10^3/uL (1.8-7.8); NEUTROPHILS % (AUTO) 69 % (42-75); PLATELET COUNT 78 10^3/uL (130-400); WHITE BLOOD COUNT 4.6 10^3/uL (4.3-11.0)
[2022-10-28 06:20] LABS: ALBUMIN 3.4 GM/DL (3.2-4.5); POTASSIUM 3.5 MMOL/L (3.6-5.0)
[2022-10-28 06:23] LABS: TOTAL PROTEIN 7.2 GM/DL (6.4-8.2)
[2022-10-28 06:25] LABS: BILIRUBIN,TOTAL 0.3 MG/DL (0.1-1.0)
[2022-10-28 06:26] LABS: CREATININE SERUM 0.91 MG/DL (0.60-1.30)
[2022-10-28] MEDS: RT-ALBUTEROL/IPRATROPIUM 3 ML (DUONEB) VIAL INH PRN ×2 (08:00)
[2022-10-28] MEDS ORDERED: RT-ALBUTEROL/IPRATROPIUM 3 ML (DUONEB) VIAL INH PRN (09:00)
[2022-10-28] MEDS ORDERED: FUROSEMIDE 20 MG (LASIX) TAB PO SCH (09:00)
[2022-10-28] MEDS: RT-ALBUTEROL/IPRATROPIUM 3 ML (DUONEB) VIAL INH SCH ×4 (10:17→22:07)
[2022-10-28] MEDS: PANTOPRAZOLE 40 MG (PROTONIX) TAB PO SCH (10:21)
[2022-10-28] MEDS: PREGABALIN 100 MG (LYRICA) CAPSULE PO SCH ×2 (10:21→20:28)
[2022-10-28] MEDS: CELECOXIB 100 MG (CeleBREX) CAP PO SCH ×2 (10:21→20:28)
[2022-10-28] MEDS: SERTRALINE 100 MG (ZOLOFT) TAB PO SCH (10:21)
[2022-10-28] MEDS: KCL 8 MEQ (MICRO K) TABLET PO SCH (10:21)
[2022-10-28] MEDS: VITAMIN D3 25 MCG (1,000 UNITS) TABLET PO SCH (10:21)
[2022-10-28] MEDS: VANCOMYCIN 1500 MG/NS 500 ML IVPB IV SCH ×4 (10:21→20:28)
[2022-10-28] MEDS: FUROSEMIDE 20 MG (LASIX) TAB PO SCH (10:21)
[2022-10-28] MEDS ORDERED: FUROSEMIDE 40 MG/4 ML INJ (LASIX) IVP NR (11:00)
[2022-10-28] MEDS: fentaNYL INJ 100 MCG/2 ML AMP IVP PRN ×2 (11:23→18:05)
--- NOTE | 2022-10-28 14:01 | Progress Note - Hospitalist ---
JESICA ROBERTSON 10/28/22 1401: Subjective HPI/CC On Admission Date Seen by Provider: Oct 28, 2022 Time Seen by Provider: 09:30 57 year old female with history of sjogren Syndrome, Hypertension, anxiety, arthritis, and ongoing cellulitis with drainage of left elbow area presented to the hospital today as a transfer from [facility] for right elbow cellulitis. She reports this began originally at the beginning of September and she reports spending a few days at [facility] before being discharged on Clindamycin wh ich she reports taking for the past month. It was beginning to improve, but she developed fever and chills yesterday as well as slightly altered mental status prior to presenting to [place]'s ED. She reports feeling better this morning than yesterday. She is A/O x3 at this time and denies lightheadedness, Dizziness, CP, SOB, abd pain, N/V/D. She has been having a headache. Subjective/Events-last exam Pt. was awake and alert in bed when seen this morning. She reports okay appetite and is urinating well. She has not had a BM yet. She reports generalized fatigue and continues pain in her right arm which she rates an 8/10. She was having increased SOB and a mild cough. She reports that breathing treatments have helped her SOB. As the morning progressed she had increased work of breathing and had an O2 sat as low as 88% at one point requiring 2.5 L O2 to return it to 94%. Her vitals are otherwise stable at this time and she denies chills, CP, palpitations, abd pain, N/V/D. Review of Systems General: No Chills; Fatigue HEENT: No Head Aches Pulmonary: Dyspnea, Cough; No Pleuritic Chest Pain Cardiovascular: No: Chest Pain, Palpitations Gastrointestinal: Constipation; No: Nausea, Vomiting, Abdominal Pain Genitourinary: No Dysuria, No Hematuria Neurological: No: Weakness, Numbness, Confusion Objective Exam Vital Signs Vital Signs Date Time Temp Pulse Resp B/P (MAP) Pulse Ox O2 Delivery O2 Flow Rate FiO2 10/28/22 11:49 22 94 Nasal Cannula 2.50 10/28/22 11:44 37.2 87 141/71 (94) 10/28/22 08:50 21 Capillary Refill : Less Than 3 Seconds General Appearance: No Apparent Distress, WD/WN HEENT: PERRL/EOMI, Pharynx Normal Neck: Non Tender, Supple Respiratory: Chest Non Tender, No Accessory Muscle Use, No Respiratory Distress, Other (Mild Rhonchi LLL) Cardiovascular: Regular Rate, Rhythm, No Murmur, Normal Peripheral Pulses Gastrointestinal: Normal Bowel Sounds, Non Tender, Soft Extremity: Normal Capillary Refill, Non Tender, No Calf Tenderness, No Pedal Edema Neurologic/Psychiatric: Alert, Oriented x3, No Motor/Sensory Deficits, Normal Mood/Affect Skin: Normal Color, Warm/Dry Lymphatic: No Adenopathy Results/Procedures Lab Laboratory Tests 10/28/22 05:50 Patient resulted labs reviewed. Assessment/Plan Assessment and Plan Assess & Plan/Chief Complaint Severe sepsis secondary to Cellulitis of Right Elbow Patient was febrile, tachycardic, and had Lactic acidosis at [place] prior to transfer here 10/25. Resolved at this time. On-going cellulitis of right elbow for going on a month and a half. 10/26 Dr. Porras took patient to the OR to open, debride, and irrigate wound. Wound cultures showed Group B hemolytic Strep. Sensitivities pending as of 10/28. Day 4 Vancomycin 1.5g IV BID. previous wound cultures have only grown MRSA. Shortness of Breath Fluid excess vs. PE vs. Pneumonia vs. COPD exacerbation Home lasix 20mg PO QD restarted. Will give one time 20mg IV push of lasix as well. Will consider cest Ct w/ contrast to rule out PE Continue breathing treatments with albuterol/ipratropium 3ml Neb Q4hrs PRN. Monitor closely Hypokalemia 10/27 K+ of 3.5. Kcl 8 mEq PO QD. Anemia 10/28 hgb 8.7 which is mostly unchanged since 8.6 on 10/27/ Pt. initially reported on going anemia secondary to hydroxychloroquine she was taking for Sjogren Syndrome and that she recently stopped taking it per her doctors recommendation. Unchanged since yesterday after stopping IV fluids. Will continue to monitor. Patient reports normal colonoscopy in 2014 and denies hematochezia or melena. If Hgb continues to drop then will begin to look for secondary causes. Sjogren Syndrome Managed outpatient by Dr. Briscoe through [place] per patient. Pilocarpine 5mg PO TID from home meds for dry mouth. Hypertension Takes Losartan 50mg QD at home. Will hold BP medications at this time given BP of 96/57 mmHg. Anxiety Takes Sertraline 100mg PO QD at home. Will continue Arthritis Will restart home meds of celecoxib 200mg QD and pregabalin 100mg BID. Smoking history 20.5 pack year smoking history. Patient denies needing nicotine patch. Denies history of COPD. Counseled patient on benefits of quitting. May benefit from albuterol nebulizer treatment given wheezing on exam. Will recommend discussing PFTs with PCP upon discharge KRIS JEAN-BAPTISTE MD 10/28/22 1555: Assessment/Plan Assessment and Plan Assess & Plan/Chief Complaint Pt reports feeling short of breath and "full of fluid." resumed lasix yesterday but still feels edematous. Will do a dose of IV lasix today and see how she does. If still short of breath will get CTA to evaluate for underlying PE (though is not hypoxic or tachycardiacso low risk). Discussed this plan with patient and she is agreeable. She also complains of severe pain in her elbow that is only somewhat alleviated by pain regimen. Increased dose on both IV and oral medication. OT to start tomorrow. Supervisory-Addendum Brief Verification & Attestation Participated in pt care: history, MDM, physical Personally performed: exam, history, MDM, supervision of care Care discussed with: Medical Student Procedures: n/a Results interpretation: Verified all documentation Verification and Attestation of Medical Student E/M Service A medical student performed and documented this service in my presence. I reviewed and verified all information documented by the medical student and made modifications to such information, when appropriate. I personally performed the physical exam and medical decision making. Kris Jean-Baptiste, Oct 28, 2022,15:52 JESICA ROBERTSON Oct 28, 2022 14:01 KRIS JEAN-BAPTISTE MD Oct 28, 2022 15:55
[2022-10-28] MEDS: ENOXAPARIN 40 MG/0.4 ML (LOVENOX) SYR SQ SCH (14:30)
[2022-10-28] MEDS: oxyCODONE/APAP 7.5-325 MG (PERCOCET 7.5) TABLET PO PRN ×2 (14:35→20:34)
[2022-10-29] VITALS (7 sets, daily range): BP systolic 114–181; BP diastolic 64–80
[2022-10-29] MEDS: oxyCODONE/APAP 7.5-325 MG (PERCOCET 7.5) TABLET PO PRN ×4 (00:40→20:13)
[2022-10-29] MEDS: RT-ALBUTEROL/IPRATROPIUM 3 ML (DUONEB) VIAL INH SCH ×5 (02:56→18:57)
[2022-10-29] MEDS: PILOCARPINE 5 MG TABLET PO SCH ×3 (05:24→18:03)
[2022-10-29 06:02] LABS: HEMATOCRIT 25 % (35-52); HEMOGLOBIN 8.1 g/dL (11.5-16.0); MEAN CORPUSCULAR HGB CONC 33 g/dL (32-36)
[2022-10-29 06:04] LABS: BASOPHILS % (AUTO) 1 % (0-10); EOSINOPHILS # (AUTO) 0.1 10^3/uL (0.0-0.3); EOSINOPHILS % (AUTO) 3 % (0-10); LYMPHOCYTES # (AUTO) 0.8 10^3/uL (1.0-4.0); LYMPHOCYTES % (AUTO) 27 % (12-44); MEAN CORPUSCULAR HEMOGLOBIN 34 pg (25-34); MEAN CORPUSCULAR VOLUME 102 fL (80-99); MEAN PLATELET VOLUME 12.1 fL (9.0-12.2); MONOCYTES # (AUTO) 0.4 10^3/uL (0.0-1.0); MONOCYTES % (AUTO) 13 % (0-12); NEUTROPHILS # (AUTO) 1.7 10^3/uL (1.8-7.8); NEUTROPHILS % (AUTO) 56 % (42-75); PLATELET COUNT 80 10^3/uL (130-400); WHITE BLOOD COUNT 3.1 10^3/uL (4.3-11.0)
[2022-10-29 06:29] LABS: ALBUMIN 3.2 GM/DL (3.2-4.5); POTASSIUM 3.4 MMOL/L (3.6-5.0)
[2022-10-29 06:30] LABS: CALCIUM 8.7 MG/DL (8.5-10.1)
[2022-10-29 06:32] LABS: TOTAL PROTEIN 6.9 GM/DL (6.4-8.2)
[2022-10-29 06:33] LABS: BILIRUBIN,TOTAL 0.3 MG/DL (0.1-1.0)
[2022-10-29 06:35] LABS: CREATININE SERUM 0.9 MG/DL (0.60-1.30)
[2022-10-29] MEDS: FUROSEMIDE 20 MG (LASIX) TAB PO SCH (08:10)
[2022-10-29] MEDS: SERTRALINE 100 MG (ZOLOFT) TAB PO SCH (08:10)
[2022-10-29] MEDS: VITAMIN D3 25 MCG (1,000 UNITS) TABLET PO SCH (08:10)
[2022-10-29] MEDS: PANTOPRAZOLE 40 MG (PROTONIX) TAB PO SCH (08:10)
[2022-10-29] MEDS: PREGABALIN 100 MG (LYRICA) CAPSULE PO SCH ×2 (08:10→20:13)
[2022-10-29] MEDS: CELECOXIB 100 MG (CeleBREX) CAP PO SCH ×2 (08:10→20:13)
[2022-10-29] MEDS: KCL 8 MEQ (MICRO K) TABLET PO SCH (08:10)
[2022-10-29] MEDS: VANCOMYCIN 1500 MG/NS 500 ML IVPB IV SCH ×2 (08:11)
[2022-10-29] MEDS ORDERED: FUROSEMIDE 40 MG/4 ML INJ (LASIX) IVP NR (12:00)
--- NOTE | 2022-10-29 12:08 | Occupational Therapy Eval ---
OT Evaluation-General/PLF Medical Diagnosis Admission Date Oct 24, 2022 at 19:07 Medical Diagnosis: Right elbow cellulitis/debridement Onset Date: Oct 24, 2022 Therapy Diagnosis Therapy Diagnosis: Weakness, Decreased ADL skills Height/Weight Height (Feet): 5 Height (Inches): 6 Weight (Pounds): 210 Weight (Ounces): 3.2 Precautions Precautions/Isolations: Contact Isolation Weight Bear Status Weight Bearing Restriction: Weight Bearing/Tolerated Referral Physician: Dr. Jean-Baptiste Referral Reason: Activity Tolerance, Self Care, Evaluation/Treatment, Stren gthening/ROM Medical History Pertinent Medical History: Arthritis, GERD, HTN Additional Medical History Sjogren Syndrome, ongoing cellulitis, ruptured esophagus, pneumonia Current History Pt. began having cellulitis in right elbow in early September. She went to hospital and was put on powerful antibiotic. After this went home on pill form. Pt. verbalizes that she began having issues again. Came to ER in [place] with fever and chills, and AMS. Sent to [place]. Pt. had elbow debrided on 10-26-22. Reviewed History: Yes Social History Home: Single Level Current Living Status: Other Family (2 grown grandchildren) Entry Into Home: Level Entry ADL-Prior Level of Function SCALE: Activities may be completed with or without assistive devices. 7-Kfdikhpnxb-ogdypkd completes the activity by him/herself with no assistance from a helper. 5-Set-up or Clean-up Assistance-helper sets up or cleans up; patient completes activity. [place] assists only prior to or following the activity. 4-Supervision or Touching Assistance-helper provides verbal cues and/or touchi ng/steadying and/or contact guard assistance as patient completes activity. Assistance may be provided throughout the activity or intermittently. 3-Partial/Moderate Assistance-helper does LESS THAN HALF the effort. [place] lifts, holds or supports trunk or limbs, but provides less than half the effort. 2-Substantial/Maximal Assistance-helper does MORE THAN HALF the effort. [place] lifts or holds trunk or limbs and provides more than half the effort. 2-Kcesnmfoz-icruku does ALL the effort. Patient does none of the effort to complete the activity. Or, the assistance of 2 or more helpers is required for the patient to complete the activity. If activity was not attempted, code reason: 7-Patient Refused. 9-Not Applicable-not attempted and the patient did not perform the activity before the current illness, exacerbation or injury. 10-Not Attempted due to Environmental Limitations-(lack of equipment, weather restraints, etc.). 88-Not Attempted due to Medical Conditions or Safety Concerns. ADL PLOF Comments Pt. states that prior to this hospitalization, she was independent with all tasks. Does not use an AE for ambulation. 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 Drive Self: Yes OT Current Status Subjective Pt. indicates that she does have pain in her right elbow, but does not state pain level. She has had pain medication. Appearance Pt. is sitting EOB. Alert and oriented. Agrees to work with OT. Mental Status/Objective Patient Orientation: Person, Place, Time, Situation Attachments: IV Current Hand Dominance: Right Upper Extremity ROM Left UE is within functional limit. Pt. is able to flex/move right UE, but she has swelling and bandages on elbow that make tasks difficult. Pt. has significant swelling in right hand. She has KURTIS wrap on from wrist up past elbow with bandages underneath. OT checked KURTIS wrap and it is not tight. ADL-Treatment Eating (QC): 6 Upper Body Dressing (QC): 5 (Set up per pt.) Lower Body Dressing (QC): 5 On/Off Footwear (QC): 6 (Pt. demonstrates ability to doff/don slipper socks. She has some difficulty bending over, only because of swelling in her abdomen and legs from current IV fluids.) Toileting Hygiene (QC): 6 (Independent per pt. ) Other Treatments OT educated pt. regarding OT goals and process. Pt. was already dressed and states that she was able to dress herself. She also has been able to cleanse self when toileting. She states, "I have just had to figure out a way to modify it." Pt is able to stand at bedside and ambulate to chair in room. She transfers back and forth several times trying to get comfortable. She is independent with this. Pt. is able to doff/don slipper socks with some effort. OT educates her about using a sock aide, but pt. states that she is okay, and no need for OT to bring in sock aide. OT checked the tightness of KURTIS wrap to make sure it wasnt causing pooling of fluid in her hand. KURTIS wrap is not too tight and OT can get several fingers underneath. Due to pt. being treated for an active infection (cellulitis), pt. not appropriate at this time for retrograde massage to hand that could push infection toward her heart. However, she is educated about performing simple hand and fingers stretches with opening/closing hand, as well as active gentle elbow bends to keep elbow from "freezing" from non-use. Pt. is able to do this. She is also educated regarding elevation and keeping right UE propped up on pillows while in bed. Pt. verbalizes unde rstanding of all suggestions. Due to pt's current independence level within the room, and inability to complete aggressive massage or strengthening with right UE from active infection, OT goals are not warranted at this time. Education OT Patient Education: Correct positioning, Exercise program, Modified ADL techniques, Progress toward Goal/Update tx plan, Purpose of tx/functional activities, Reviewed precautions, Rehab process, Transfer techniques Teaching Recipient: Patient Teaching Methods: Demonstration, Discussion Response to Teaching: Verbalize Understanding, Return Demonstration OT Staff Physical Therapy Assistant Goals Staff Physical Therapy Assistant Goals Time Frame: Oct 29, 2022 Additional Goals: 1-Demonstrate ADL Tasks, 2-Verbalize Understanding 1=Demonstrate adherence to instructed precautions during ADL tasks. 2=Patient will verbalize/demonstrate understanding of assistive d evices/modifications for ADL. 3=Patient will improve strength/tolerance for activity to enable patient to perform ADL's. Pt. has been educated in elevation and stretching techniques for right hand to keep joints mobile and to assist with fluid pooling as needed. OT Education/Plan Problem List/Assessment Assessment: No Skilled OT Needs ID'd Discharge Recommendations Plan/Recommendations: Discharge/Goals Met Treatment Plan/Plan of Care Treatment,Training & Education: Yes Patient would benefit from OT for education, treatment and training to promote independence in ADL's, mobility, safety and/or upper extremity function for ADL's. Plan of Care: OTHER Treatment Duration: Oct 29, 2022 Frequency: 1 time per week Time Start Time: 09:00 Stop Time: 09:30 DATE: Oct 29, 2022 Total Time Billed (hr/min): 30 Billed Treatment Time 1, EVL x 15minutes, ADL x 15minutes ALVARADO BLANKENSHIP OT Oct 29, 2022 12:08
[2022-10-29] MEDS: ENOXAPARIN 40 MG/0.4 ML (LOVENOX) SYR SQ SCH (12:29)
[2022-10-29] MEDS: fentaNYL INJ 100 MCG/2 ML AMP IVP PRN (15:49)
--- NOTE | 2022-10-29 16:16 | Progress Note - Hospitalist ---
Subjective HPI/CC On Admission Date Seen by Provider: Oct 29, 2022 Time Seen by Provider: 11:05 57 year old female with history of sjogren Syndrome, Hypertension, anxiety, arthritis, and ongoing cellulitis with drainage of left elbow area presented to the hospital today as a transfer from [facility] for right elbow cellulitis. She reports this began originally at the beginning of September and she reports spending a few days at [facility] before being discharged on Clindamycin which she reports taking for the past month. It was beginning to improve, but she developed fever and chills yesterday as well as slightly altered mental status prior to presenting to [place]'s ED. She reports feeling better this morning than yesterday. She is A/O x3 at this time and denies lightheadedness, Dizziness, CP, SOB, abd pain, N/V/D. She has been having a headache. Subjective/Events-last exam She is feeling bloated. Her legs are swollen. She has no other complaints. Objective Exam Vital Signs Vital Signs Date Time Temp Pulse Resp B/P (MAP) Pulse Ox O2 Delivery O2 Flow Rate FiO2 10/29/22 15:23 37.5 83 18 181/80 (113) 92 Room Air 10/29/22 14:40 0.00 10/28/22 08:50 21 Capillary Refill : Less Than 3 Seconds General Appearance: No Apparent Distress, Obese Respiratory: Lungs Clear, No Respiratory Distress Cardiovascular: Regular Rate, Rhythm, No Murmur Gastrointestinal: Normal Bowel Sounds, Soft Extremity: Normal Inspection, No Pedal Edema Neurologic/Psychiatric: Alert, Normal Mood/Affect Skin: Normal Color, Warm/Dry Results/Procedures Lab Laboratory Tests 10/29/22 05:20 Patient resulted labs reviewed. Imaging: Reviewed Imaging Report Assessment/Plan Assessment and Plan Assess & Plan/Chief Complaint Severe sepsis Cellulitis Abscess Ortho performed I&D Cultures with Strep Stop Vancomycin Begin Amoxicillin Acute HFpEF Pulmonary edema Lasix Hypokalemia Monitor and replace as needed Anemia Stable, monitor HTN Sjogrens Anxiety Arthritis Diagnosis/Problems Diagnosis/Problems (1) Severe sepsis Status: Acute (2) Cellulitis and abscess of upper extremity Status: Acute (3) Pulmonary edema Status: Acute Qualifiers: Chronicity: acute Qualified Codes: J81.0 - Acute pulmonary edema (4) Acute heart failure with preserved ejection fraction (HFpEF) Status: Acute (5) Anemia Status: Acute (6) Hypokalemia Status: Acute LUCIA SARAVIA MD Oct 29, 2022 16:16
[2022-10-29] MEDS ORDERED: amLODIPine 5 MG (NORVASC) TAB PO NR (17:45)
[2022-10-29] MEDS ORDERED: LOSARTAN 50 MG (COZAAR) TAB PO NR (17:45)
[2022-10-29] MEDS: AMOXICILLIN 500 MG (POLYMOX) CAP PO SCH ×2 (18:03→20:13)
[2022-10-29] MEDS ORDERED: hydrALAZINE (APESOLINE) 20 MG/ML VIAL IV PRN (18:45)
[2022-10-29] MEDS ORDERED: RT-ALBUTEROL/IPRATROPIUM 3 ML (DUONEB) VIAL INH PRN (19:15)
[2022-10-29] MEDS: MELATONIN 3 MG TABLET PO PRN (20:13)
[2022-10-30 03:43] VITALS: BP 153/63
[2022-10-30] MEDS: oxyCODONE/APAP 7.5-325 MG (PERCOCET 7.5) TABLET PO PRN ×4 (03:53→22:12)
[2022-10-30 05:54] LABS: BASOPHILS % (AUTO) 0 % (0-10); EOSINOPHILS # (AUTO) 0.1 10^3/uL (0.0-0.3); EOSINOPHILS % (AUTO) 2 % (0-10); HEMATOCRIT 26 % (35-52); HEMOGLOBIN 8.6 g/dL (11.5-16.0); LYMPHOCYTES # (AUTO) 0.8 10^3/uL (1.0-4.0); LYMPHOCYTES % (AUTO) 20 % (12-44); MEAN CORPUSCULAR HEMOGLOBIN 33 pg (25-34); MEAN CORPUSCULAR HGB CONC 33 g/dL (32-36); MEAN CORPUSCULAR VOLUME 100 fL (80-99); MONOCYTES # (AUTO) 0.3 10^3/uL (0.0-1.0); MONOCYTES % (AUTO) 8 % (0-12); NEUTROPHILS # (AUTO) 2.8 10^3/uL (1.8-7.8); NEUTROPHILS % (AUTO) 69 % (42-75); PLATELET COUNT 87 10^3/uL (130-400); WHITE BLOOD COUNT 4.1 10^3/uL (4.3-11.0)
[2022-10-30] MEDS: PILOCARPINE 5 MG TABLET PO SCH ×3 (06:00→15:38)
[2022-10-30 06:04] LABS: ALBUMIN 3.3 GM/DL (3.2-4.5)
[2022-10-30 06:05] LABS: CALCIUM 8.5 MG/DL (8.5-10.1)
[2022-10-30 06:06] LABS: TOTAL PROTEIN 7.2 GM/DL (6.4-8.2)
[2022-10-30 06:08] LABS: BILIRUBIN,TOTAL 0.6 MG/DL (0.1-1.0)
[2022-10-30 06:10] LABS: CREATININE SERUM 0.84 MG/DL (0.60-1.30)
[2022-10-30] MEDS: fentaNYL INJ 100 MCG/2 ML AMP IVP PRN ×2 (06:22→22:12)
[2022-10-30 07:13] VITALS: BP 149/71
[2022-10-30] MEDS: SERTRALINE 100 MG (ZOLOFT) TAB PO SCH (07:51)
[2022-10-30] MEDS: CELECOXIB 100 MG (CeleBREX) CAP PO SCH ×2 (07:51→20:21)
[2022-10-30] MEDS: ACETAMINOPHEN 325 MG TABLET PO PRN (07:52)
[2022-10-30] MEDS: FUROSEMIDE 20 MG (LASIX) TAB PO SCH (07:53)
[2022-10-30] MEDS: amLODIPine 5 MG (NORVASC) TAB PO SCH (07:53)
[2022-10-30] MEDS: KCL 8 MEQ (MICRO K) TABLET PO SCH (07:53)
[2022-10-30] MEDS: PREGABALIN 100 MG (LYRICA) CAPSULE PO SCH ×2 (07:53→20:20)
[2022-10-30] MEDS: AMOXICILLIN 500 MG (POLYMOX) CAP PO SCH ×3 (07:53→20:21)
[2022-10-30] MEDS: VITAMIN D3 25 MCG (1,000 UNITS) TABLET PO SCH (07:53)
[2022-10-30] MEDS: PANTOPRAZOLE 40 MG (PROTONIX) TAB PO SCH (07:53)
[2022-10-30] MEDS ORDERED: FUROSEMIDE 40 MG/4 ML INJ (LASIX) IVP NR ×2 (08:30→15:15)
[2022-10-30] MEDS ORDERED: LOSARTAN 50 MG (COZAAR) TAB PO SCH (09:00)
[2022-10-30] MEDS ORDERED: SENNA W/DOCUSATE (SENOKOT S) TABLET PO NR (10:00)
[2022-10-30] MEDS ORDERED: polyethylene glycoL POWDER 17 GM (MIRALAX) PACK PO NR (10:00)
[2022-10-30] MEDS ORDERED: DOCUSATE SODIUM 100 MG (COLACE) CAP PO NR (10:00)
--- NOTE | 2022-10-30 10:03 | Progress Note - Ortho ---
Progress Note Subjective Date of Exam 10/30/22 Chief Complaint POD #4 I&D of R Forearm Abscess HPI/Events since last exam some pain in forearm, has had 2 dressing changes, has noted drainage Review of Systems - Allergies: Coded Allergies: procaine (Verified Allergy, Unknown, 01/09/16) Home Meds Reported Medications Amlodipine Besylate (Amlodipine Besylate) 2.5 Mg Tablet, 2.5 MG PO DAILY, TAB 10/25/22 Cyanocobalamin (Vitamin B-12) (Vitamin B-12) 500 Mcg Tablet, 500 MCG PO DAILY, TAB 10/25/22 Cholecalciferol (Vitamin D3) (Vitamin D3) 25 Mcg (1000 Unit) Tablet, 25 MCG PO DAILY, TAB 10/25/22 Pilocarpine (Salagen) 5 Mg Tab, 5 MG PO HS PRN for DRY MOUTH, TAB 10/25/22 Pilocarpine (Salagen) 5 Mg Tab, 5 MG PO TID, TAB LAST FILLED 07-19-2022 #90 10/25/22 Pregabalin (Pregabalin) 100 Mg Capsule, 100 MG PO BID, CAP 10/25/22 Omeprazole (Omeprazole) 40 Mg Capsule.dr, 40 MG PO DAILY, CAP 10/25/22 Celecoxib (Celecoxib) 100 Mg Capsule, 200 MG PO DAILY, CAP TAKES 2 (100MG) CAPS 10/25/22 Losartan Potassium (Losartan Potassium) 50 Mg Tablet, 50 MG PO DAILY, TAB 10/25/22 Furosemide (Furosemide) 20 Mg Tablet, 20 MG PO DAILY, TAB 10/25/22 Oxycodone HCl/Acetaminophen (Oxycodone-Acetaminophen 5-325) 5 Mg-325 Mg Tablet, 1 EA PO Q6H PRN for PAIN-MODERATE (5-7), TAB 10/25/22 Potassium Chloride (Potassium Chloride) 8 Meq Capsule.er, 8 MEQ PO DAILY, CAP 10/25/22 Sertraline HCl (Sertraline HCl) 100 Mg Tablet, 100 MG PO DAILY, TAB 10/25/22 Discontinued Reported Medications Ranitidine HCl (Zantac) 150 Mg Tablet, 150 MG PO BID 01/10/16 Simvastatin (Simvastatin) 10 Mg Tablet, 10 MG PO HS 01/10/16 Lisinopril/Hydrochlorothiazide (Lisinopril-Hctz 20-12.5 mg Tab) 1 Each Tablet, 1 TAB PO DAILY 01/10/16 Ondansetron (Zofran Odt) 4 Mg Tab.rapdis, 4 MG PO Q6H PRN for NAUSEA/VOMITING 01/09/16 Meloxicam (Meloxicam) 15 Mg Tablet, 15 MG PO DAILY 01/09/16 Esomeprazole Magnesium (Nexium) 40 Mg Cap, 40 MG PO DAILY 01/09/16 Discontinued Scripts Nebulizer (Nebulizer W/Compressor) 1 Pkt Each, 1 EACH MC UD, #1 Prov:CHARLENE BUSTILLO DO 01/18/16 Nebulizer (Nebulizer With Adult Mask) 1 Pkt Each, 1 EACH MC UD, #1 Prov:CHARLENE BUSTILLO DO 01/18/16 Nebulizer (Nebulizer W/Compressor) 1 Pkt Each, 1 EACH MC UD for COPD, #1 Prov:CHARLENE BUSTILLO DO 01/18/16 Nebulizer (Nebulizer With Adult Mask) 1 Pkt Each, 1 EACH MC UD, #1 Prov:CHARLENE BUSTILLO DO 01/18/16 Amoxicillin/Potassium Clav (Augmentin 875-125 Tablet) 1 Each Tablet, 1 EACH PO BID, #14 TAB Prov:CHARLENE BUSTILLO DO 01/18/16 Amlodipine Besylate (Amlodipine Besylate) 5 Mg Tablet, 5 MG PO DAILY, #30 TAB Prov:CHARLENE BUSTILLO DO 01/18/16 Ipratropium/Albuterol Sulfate (Iprat-Albut 0.5-3(2.5) mg/3 ml) 3 Ml Ampul.neb, 3 ML INH RTQ4HR, #90 INHALER 1 Refill Prov:CHARLENE BUSTILLO DO 01/18/16 Nystatin (Nystatin) 100,000 Unit/1 Ml Oral.susp, 5 ML PO Q6HR, #8 ML 1 Refill Prov:CHARLENE BUSTILLO DO 01/18/16 Hydrocodone/Acetaminophen (Lortab 7.5-325 mg Tablet) 1 Each Tablet, 1 TAB PO Q6H PRN for PAIN, #30 Prov:CHARLENE BUSTILLO DO 01/18/16 Objective Exam right forearm/elbow: some erythema, proximal incision intact and dry, more distal incision with lack of healing where sinus tract was excised and appearance of some purulent/calcification drainage--middle sutures removed and 1/4" iodoform packing placed Vital Signs Vital Signs Date Time Temp Pulse Resp B/P (MAP) Pulse Ox O2 Delivery O2 Flow Rate FiO2 10/30/22 07:21 Nasal Cannula 2.00 10/30/22 07:13 36.2 69 18 149/71 (97) 90 Nasal Cannula 2.00 2.00 10/30/22 03:43 36.5 78 18 153/63 (93) 92 Nasal Cannula 2.00 10/29/22 23:16 36.5 76 18 114/66 (82) 92 Room Air 10/29/22 20:10 Room Air 10/29/22 19:07 36.9 85 18 159/77 (104) 92 Room Air 10/29/22 18:57 97 Room Air 10/29/22 16:30 171/74 (106) 10/29/22 15:23 37.5 83 18 181/80 (113) 92 Room Air 10/29/22 14:40 95 Room Air 0.00 10/29/22 11:51 36.2 73 18 128/64 (85) 92 Room Air 10/29/22 11:24 92 Room Air I & O 10/30/22 07:00 Intake Total 2960 ml Output Total 1600 ml Balance 1360 ml Lab Results Laboratory Tests 10/30/22 05:11: Sodium Level 139, Potassium Level 3.0L, Chloride Level 106, Carbon Dioxide Level 20L, Anion Gap 13, Blood Urea Nitrogen 14, Creatinine 0.84, Estimat Glomerular Filtration Rate 81, BUN/Creatinine Ratio 17, Glucose Level 107H, Calcium Level 8.5, Corrected Calcium 9.1, Total Bilirubin 0.6, Aspartate Amino Transf (A ST/SGOT) 17, Alanine Aminotransferase (ALT/SGPT) 12, Alkaline Phosphatase 63, Total Protein 7.2, Albumin 3.3 10/30/22 05:30: White Blood Count 4.1L, Red Blood Count 2.64L, Hemoglobin 8.6L, Hematocrit 26L, Mean Corpuscular Volume 100H, Mean Corpuscular Hemoglobin 33, Mean Corpuscular Hemoglobin Concent 33, Red Cell Distribution Width 15.9H, Platelet Count 87L, Mean Platelet Volume 12.0, Immature Granulocyte % (Auto) 1, Neutrophils (%) (Auto) 69, Lymphocytes (%) (Auto) 20, Monocytes (%) (Auto) 8, Eosinophils (%) (Auto) 2, Basophils (%) (Auto) 0, Neutrophils # (Auto) 2.8, Lymphocytes # (Auto) 0.8L, Monocytes # (Auto) 0.3, Eosinophils # (Auto) 0.1, Basophils # (Auto) 0.0, Immature Granulocyte # (Auto) 0.0 Microbiology 10/26/22 Gram Stain - Final, Resulted 10/26/22 Anaerobic Culture - Preliminary, Resulted No anaerobes isolated 10/26/22 Surgical Culture - Final, Resulted Streptococcus canis No Further Testing 10/25/22 MRSA Screen - Final, Complete MRSA not isolated Assessment and Plan Assessment Right Forearm Abscess s/p I&D Problem List Right Forearm Abscess s/p I&D Plan Convert to iodoform packing dressing change for distal incision Final Diagonsis Right Forearm Abscess s/p I&D Level of the visit: Level 3 (postop) ANGELY MARTE MD Oct 30, 2022 10:03
[2022-10-30 11:05] VITALS: BP 135/72
[2022-10-30] MEDS: ENOXAPARIN 40 MG/0.4 ML (LOVENOX) SYR SQ SCH (13:09)
--- NOTE | 2022-10-30 15:06 | Progress Note - Hospitalist ---
Subjective HPI/CC On Admission Date Seen by Provider: Oct 30, 2022 Time Seen by Provider: 09:55 57 year old female with history of sjogren Syndrome, Hypertension, anxiety, arthritis, and ongoing cellulitis with drainage of left elbow area presented to the hospital today as a transfer from [facility] for right elbow cellulitis. She reports this began originally at the beginning of September and she reports spending a few days at [facility] before being discharged on Clindamycin which she reports taking for the past month. It was beginning to improve, but she developed fever and chills yesterday as well as slightly altered mental status prior to presenting to [facility] ED. She reports feeling better this morning than yesterday. She is A/O x3 at this time and denies lightheadedness, Dizziness, CP, SOB, abd pain, N/V/D. She has been having a headache. Subjective/Events-last exam She is still swollen. She is short of breath with minimal exertion. She has no other complaints. Objective Exam Vital Signs Vital Signs Date Time Temp Pulse Resp B/P (MAP) Pulse Ox O2 Delivery O2 Flow Rate FiO2 10/30/22 11:05 36.1 66 20 135/72 (93) 90 Room Air 10/30/22 07:21 2.00 10/28/22 08:50 21 Capillary Refill : Less Than 3 Seconds General Appearance: No Apparent Distress, Obese Respiratory: Lungs Clear, No Respiratory Distress Cardiovascular: Regular Rate, Rhythm, No Murmur Gastrointestinal: Normal Bowel Sounds, Soft Extremity: Normal Inspection, Pedal Edema Neurologic/Psychiatric: Alert, Normal Mood/Affect Results/Procedures Lab Laboratory Tests 10/30/22 05:11 10/30/22 05:30 Patient resulted labs reviewed. Imaging: Reviewed Imaging Report Assessment/Plan Assessment and Plan Assess & Plan/Chief Complaint Severe sepsis Cellulitis Abscess Ortho performed I&D Cultures with Strep Amoxicillin Acute HFpEF Pulmonary edema Acute respiratory failure with hypoxia Continue Lasix Hypokalemia Monitor and replace as needed Anemia Stable, monitor HTN Sjogrens Anxiety Arthritis Diagnosis/Problems Diagnosis/Problems (1) Severe sepsis Status: Acute (2) Cellulitis and abscess of upper extremity Status: Acute (3) Pulmonary edema Status: Acute Qualifiers: Chronicity: acute Qualified Codes: J81.0 - Acute pulmonary edema (4) Acute heart failure with preserved ejection fraction (HFpEF) Status: Acute (5) Anemia Status: Acute (6) Hypokalemia Status: Acute LUCIA SARAVIA MD Oct 30, 2022 15:06
[2022-10-30] MEDS ORDERED: KCL 20 MEQ TAB (K-DUR) PO NR ×2 (15:15→18:00)
[2022-10-30 15:21] VITALS: BP 149/67
[2022-10-30 19:25] VITALS: BP 120/70
[2022-10-30] MEDS: DOCUSATE SODIUM 100 MG (COLACE) CAP PO SCH (20:20)
[2022-10-30] MEDS: MELATONIN 3 MG TABLET PO PRN (20:21)
[2022-10-30] MEDS: SENNA W/DOCUSATE (SENOKOT S) TABLET PO SCH (20:21)
[2022-10-30 23:19] VITALS: BP 127/58
[2022-10-31 03:25] VITALS: BP 133/66
[2022-10-31] MEDS: PILOCARPINE 5 MG TABLET PO SCH ×2 (05:50→12:07)
[2022-10-31 05:53] LABS: BASOPHILS % (AUTO) 0 % (0-10); EOSINOPHILS # (AUTO) 0.2 10^3/uL (0.0-0.3); EOSINOPHILS % (AUTO) 4 % (0-10); HEMATOCRIT 27 % (35-52); HEMOGLOBIN 8.7 g/dL (11.5-16.0); LYMPHOCYTES % (AUTO) 28 % (12-44); MEAN CORPUSCULAR HEMOGLOBIN 34 pg (25-34); MEAN CORPUSCULAR HGB CONC 33 g/dL (32-36); MEAN CORPUSCULAR VOLUME 102 fL (80-99); MEAN PLATELET VOLUME 11.3 fL (9.0-12.2); MONOCYTES # (AUTO) 0.4 10^3/uL (0.0-1.0); MONOCYTES % (AUTO) 11 % (0-12); NEUTROPHILS # (AUTO) 2.1 10^3/uL (1.8-7.8); NEUTROPHILS % (AUTO) 56 % (42-75); PLATELET COUNT 83 10^3/uL (130-400); WHITE BLOOD COUNT 3.7 10^3/uL (4.3-11.0)
[2022-10-31 06:04] LABS: ALBUMIN 3.3 GM/DL (3.2-4.5); POTASSIUM 3.5 MMOL/L (3.6-5.0)
[2022-10-31 06:05] LABS: CALCIUM 8.8 MG/DL (8.5-10.1)
[2022-10-31 06:07] LABS: TOTAL PROTEIN 7.3 GM/DL (6.4-8.2)
[2022-10-31 06:08] LABS: BILIRUBIN,TOTAL 0.3 MG/DL (0.1-1.0)
[2022-10-31 06:10] LABS: CREATININE SERUM 0.93 MG/DL (0.60-1.30)
[2022-10-31 07:36] VITALS: BP 180/79
[2022-10-31] MEDS ORDERED: LOSARTAN 100 MG (COZAAR) TABLET PO SCH (09:00)
[2022-10-31] MEDS ORDERED: FUROSEMIDE 40 MG (LASIX) TAB PO SCH (09:00)
[2022-10-31] MEDS: AMOXICILLIN 500 MG (POLYMOX) CAP PO SCH ×2 (09:17→12:05)
[2022-10-31] MEDS: amLODIPine 5 MG (NORVASC) TAB PO SCH (09:17)
[2022-10-31] MEDS: SENNA W/DOCUSATE (SENOKOT S) TABLET PO SCH (09:17)
[2022-10-31] MEDS: PANTOPRAZOLE 40 MG (PROTONIX) TAB PO SCH (09:17)
[2022-10-31] MEDS: DOCUSATE SODIUM 100 MG (COLACE) CAP PO SCH (09:18)
[2022-10-31] MEDS: SERTRALINE 100 MG (ZOLOFT) TAB PO SCH (09:18)
[2022-10-31] MEDS: PREGABALIN 100 MG (LYRICA) CAPSULE PO SCH (09:18)
[2022-10-31] MEDS: VITAMIN D3 25 MCG (1,000 UNITS) TABLET PO SCH (09:18)
[2022-10-31] MEDS: CELECOXIB 100 MG (CeleBREX) CAP PO SCH (09:18)
[2022-10-31] MEDS: KCL 8 MEQ (MICRO K) TABLET PO SCH (09:22)
[2022-10-31] MEDS ORDERED: AMOX500C2 PO (11:38)
[2022-10-31] MEDS ORDERED: LOSA100T57 PO (11:38)
[2022-10-31 12:00] VITALS: BP 156/75
[2022-10-31] MEDS: ENOXAPARIN 40 MG/0.4 ML (LOVENOX) SYR SQ SCH (12:04)
[2022-10-31] MEDS: fentaNYL INJ 100 MCG/2 ML AMP IVP PRN (12:05)
[2022-10-31] MEDS: oxyCODONE/APAP 7.5-325 MG (PERCOCET 7.5) TABLET PO PRN (12:05)
--- NOTE | 2022-10-31 14:58 | Discharge Summary ---
Discharge Summary Hospital Course Problems/Dx: (1) Severe sepsis Status: Acute (2) Cellulitis and abscess of upper extremity Status: Acute (3) Pulmonary edema Status: Acute Qualifiers: Qualified Codes: J81.0 - Acute pulmonary edema (4) Acute heart failure with preserved ejection fraction (HFpEF) Status: Acute (5) Anemia Status: Acute (6) Hypokalemia Status: Acute Hospital Course Date of Admission: Oct 24, 2022 at 19:07 Admission Diagnosis : Severe sepsis Family Physician/Provider: Nicky Franklin MD Date of Discharge: 10/31/22 Discharge Diagnosis: Severe sepsis due to cellulitis and abscess, Acute HFpEF Hospital Course: Daisha Butler is a 57 year old female who was admitted with severe sepsis due to cellulitis and abscess of right forearm. She was transferred from [place]. She was on Clindamycin for this and she had been improving, but then started having fevers and drainage from her wound. Orthopedic surgery was consulted and assisted with her care. An incision and drainage was performed and a culture was obtained. She was treated with IV antibiotics and fluids. Her cultures grew Strep canis. She was transitioned to Amoxicillin. Her course was complicated by acute HFpEF and pulmonary edema. She was diuresed and improved. She was requiring oxygen, but none at the time of discharge. She should continue an increased Lasix dose, 40 mg daily, for the next three days. She was also pancytopenic and should get repeat lab work on Saturday. She should complete her course of antibiotics and follow up with her PCP and Orthopedic Surgery as scheduled. She was discharged home in stable condition. Labs and Pending Lab Test: Laboratory Tests 10/31/22 05:26: White Blood Count 3.7L, Red Blood Count 2.60L, Hemoglobin 8.7L, Hematocrit 27L, Mean Corpuscular Volume 102H, Mean Corpuscular Hemoglobin 34, Mean Corpuscular H emoglobin Concent 33, Red Cell Distribution Width 15.9H, Platelet Count 83L, Mean Platelet Volume 11.3, Immature Granulocyte % (Auto) 1, Neutrophils (%) (Auto) 56, Lymphocytes (%) (Auto) 28, Monocytes (%) (Auto) 11, Eosinophils (%) (Auto) 4, Basophils (%) (Auto) 0, Neutrophils # (Auto) 2.1, Lymphocytes # (Auto) 1.0, Monocytes # (Auto) 0.4, Eosinophils # (Auto) 0.2, Basophils # (Auto) 0.0, Immature Granulocyte # (Auto) 0.0, Sodium Level 141, Potassium Level 3.5L, Chloride Level 107, Carbon Dioxide Level 26, Anion Gap 8, Blood Urea Nitrogen 18, Creatinine 0.93, Estimat Glomerular Filtration Rate 72, BUN/Creatinine Ratio 19, Glucose Level 98, Calcium Level 8.8, Corrected Calcium 9.4, Total Bilirubin 0.3, Aspartate Amino Transf (AST/SGOT) 14, Alanine Aminotransferase (ALT/SGPT) 12, Alkaline Phosphatase 64, Total Protein 7.3, Albumin 3.3 Microbiology 10/26/22 Gram Stain - Final, Complete 10/26/22 Anaerobic Culture - Final, Complete No anaerobes isolated 10/26/22 Surgical Culture - Final, Complete Streptococcus canis No Further Testing 10/25/22 MRSA Screen - Final, Complete MRSA not isolated Home Meds Active Amoxicillin 500 Mg Capsule 500 Mg PO TID 7 Days Losartan Potassium 100 Mg Tablet 100 Mg PO DAILY 30 Days Reported Amlodipine Besylate 2.5 Mg Tablet 2.5 Mg PO DAILY Vitamin B-12 (Cyanocobalamin (Vitamin B-12)) 500 Mcg Tablet 500 Mcg PO DAILY Vitamin D3 (Cholecalciferol (Vitamin D3)) 25 Mcg (1000 Unit) Tablet 25 Mcg PO DAILY Salagen (Pilocarpine) 5 Mg Tab 5 Mg PO HS PRN Salagen (Pilocarpine) 5 Mg Tab 5 Mg PO TID LAST FILLED 07-19-2022 #90 Pregabalin 100 Mg Capsule 100 Mg PO BID Omeprazole 40 Mg Capsule.dr 40 Mg PO DAILY Celecoxib 100 Mg Capsule 200 Mg PO DAILY TAKES 2 (100MG) CAPS Furosemide 20 Mg Tablet 20 Mg PO DAILY Oxycodone-Acetaminophen 5-325 (Oxycodone HCl/Acetaminophen) 5 Mg-325 Mg Tablet 1 Ea PO Q6H PRN Potassium Chloride 8 Meq Capsule.er 8 Meq PO DAILY Sertraline HCl 100 Mg Tablet 100 Mg PO DAILY Assessment/Pt Instructions See instructions Discharge Planning: >30 minutes discharge planning Discharge Instructions Discharge Diet: No Restrictions Activity as Tolerated: Yes Consultations Orthopedic surgery Discharge Physical Examination Vital Signs Vital Signs Date Time Temp Pulse Resp B/P (MAP) Pulse Ox O2 Delivery O2 Flow Rate FiO2 10/31/22 12:00 37.5 75 18 156/75 (102) 92 Room Air 10/31/22 03:25 2.00 10/28/22 08:50 21 General Appearance: No Apparent Distress, Obese Respiratory: Lungs Clear, No Respiratory Distress Cardiovascular: Regular Rate, Rhythm, No Murmur Gastrointestinal: Normal Bowel Sounds, Soft Extremity: Normal Inspection, Pedal Edema Skin: Normal Color, Warm/Dry Neurologic/Psychiatric: Alert, Normal Mood/Affect Allergies: Coded Allergies: procaine (Verified Allergy, Unknown, 01/09/16) Discharge Summary Date of Admission Oct 24, 2022 at 19:07 Date of Discharge Discharge Date: Oct 31, 2022 Discharge Time: 14:50 Admission Diagnosis Severe Sepsis Consults/Procedures Consulations Orthopedic surgery Discharge Diagnosis Severe sepsis Cellulitis Abscess Acute HFpEF Pulmonary edema Acute respiratory failure with hypoxia Hypokalemia Pancytopenia HTN Sjogrens Anxiety Arthritis (1) Severe sepsis Status: Acute (2) Cellulitis and abscess of upper extremity Status: Acute (3) Pulmonary edema Status: Acute Qualifiers: Qualified Codes: J81.0 - Acute pulmonary edema (4) Acute heart failure with preserved ejection fraction (HFpEF) Status: Acute (5) Anemia Status: Acute (6) Hypokalemia Status: Acute LUCIA SARAVIA MD Oct 31, 2022 14:58
[2022-10-31 16:59] VITALS: BP 156/75
== END 2022-10-31 17:01 | disposition home or self-care (01) | DRG 871 ==
LOC: 4TH 19:07
PROVIDERS: ADMIT Family Medicine; ATTEND Internal Medicine
PROC: 8E0ZXY6 Isolation (ICD-10-PCS; 2022-10-24)
PROC: 0J9G0ZZ Drainage of Right Lower Arm Subcutaneous Tissue and Fascia, Open Approach (ICD-10-PCS; principal; 2022-10-26 08:29)
DX: A41.9 Sepsis, unspecified organism (principal); I50.31 Acute diastolic (congestive) heart failure; J81.0 Acute pulmonary edema; J96.01 Acute respiratory failure with hypoxia; L02.413 Cutaneous abscess of right upper limb; L03.113 Cellulitis of right upper limb; D61.818 Other pancytopenia; R65.20 Severe sepsis without septic shock; M35.00 Sjogren syndrome, unspecified; I11.0 Hypertensive heart disease with heart failure; D64.9 Anemia, unspecified; E87.6 Hypokalemia; F41.9 Anxiety disorder, unspecified; M19.90 Unspecified osteoarthritis, unspecified site; F17.210 Nicotine dependence, cigarettes, uncomplicated; B95.4 Other streptococcus as the cause of diseases classified elsewhere; K21.9 Gastro-esophageal reflux disease without esophagitis; Z79.899 Other long term (current) drug therapy
CPT/HCPCS: 36415; 80048; 80053; 80202; 83605; 85025; 87070; 87075; 87077; 87081; 87205; 94640; 94760; 94761

== ENCOUNTER → 2022-11-13 | Outpatient (CLI) | payer OTHER ==
[~2022-11-13] MED LIST changes: +AMLO2.5T4 PO; +AMOX500C2 PO; +CELE100C84 PO; +CHOL10004 PO; +CYAN500T8 PO; +FURO20TA4 PO; +LOSA100T57 PO; +LOSA50TA63 PO; +NF-PILO5T PO; +OMEP40CA6 PO; +OXYC1TAB11 PO; +POTA8CAP20 PO; +PREG100C55 PO; +SERT-414 PO
== END ==
LOC: ORTHO 14:59
PROVIDERS: ATTEND Orthopaedic Surgery
DX: Z47.89 Encounter for other orthopedic aftercare (principal)

== ENCOUNTER → 2022-11-27 | Outpatient (CLI) | payer OTHER ==
[~2022-11-27] MED LIST changes: +FLUT1BLS3 IH; +TRM50T PO; +ZINC10LO4 PO
== END ==
LOC: ORTHO 13:36
PROVIDERS: ATTEND Orthopaedic Surgery
DX: Z47.89 Encounter for other orthopedic aftercare (principal)

== ENCOUNTER 2022-11-28 05:59 | Outpatient (CLI) | payer OTHER ==
[~2022-11-28] VITALS: Ht 167.6 cm; Wt 92.1 kg
[~2022-11-28 05:59] MED LIST changes: -FLUT1BLS3 IH; -TRM50T PO; -ZINC10LO4 PO
[2022-11-28] MEDS ORDERED: ZINC10LO4 PO (09:55)
[2022-11-28] MEDS ORDERED: FLUT1BLS3 IH (09:55)
[2022-11-30] MEDS ORDERED: TRM50T PO (09:06)
== END 2022-11-28 10:03 | disposition home or self-care (01) ==
LOC: PREOP 05:59
PROVIDERS: ATTEND Orthopaedic Surgery
DX: Z01.818 Encounter for other preprocedural examination (principal)

== ENCOUNTER 2022-11-30 05:54 | Day surgery (SDC) | payer OTHER ==
[~2022-11-30] VITALS: Ht 168 cm; Wt 92.1 kg
[2022-11-30] VITALS (11 sets, daily range): BP systolic 113–194; BP diastolic 65–103
[~2022-11-30 05:54] MED LIST changes: +FLUT1BLS3 IH; +ZINC10LO4 PO
[2022-11-30] MEDS: LACTATED RINGERS 1,000 ML IV PRN ×2 (06:43→08:40)
[2022-11-30] MEDS ORDERED: GLYCOPYRROLATE 0.2 MG/ML (ROBINUL) 2 ML VIAL ONE (07:08)
[2022-11-30] MEDS ORDERED: ONDANSETRON 4 MG/2 ML (SDV) Z0FRAN ONE (07:08)
[2022-11-30] MEDS ORDERED: proPOfol 200 MG/20 ML (DIPRIVAN) VIAL IV ONE ×2 (07:08→08:02)
[2022-11-30] MEDS ORDERED: LIDOCAINE PF 2% 5 ML (XYLOCAINE) VIAL ONE (07:08)
[2022-11-30] MEDS ORDERED: fentaNYL INJ 100 MCG/2 ML AMP ONE (07:08)
[2022-11-30] MEDS ORDERED: SUCCINYLCHOLINE INJ 20 MG/1 ML 10 ML VIAL ONE (07:09)
[2022-11-30] MEDS ORDERED: MIDAZOLAM 2 MG/2 ML (VERSED) VIAL ONE (07:09)
[2022-11-30] MEDS ORDERED: BUP/EPI 0.5% 1:200,000 (SENSORCAINE) 30 ML VIAL ONE (07:58)
--- NOTE | 2022-11-30 08:54 | Progress Note-Pre Operative ---
Pre-Operative Progress Note Date of Available H&P: Nov 27, 2022 Date H&P Reviewed: Nov 30, 2022 Time H&P Reviewed: 07:30 History & Physical: H&P Reviewed, Patient Examed, No changes noted Pre-Operative Diagnosis: Nonhealing Right Forearm Wounds ANGELY MARTE MD Nov 30, 2022 08:54
--- NOTE | 2022-11-30 09:02 | Operative Report - Ortho ---
Operative Report Surgeon (s)/Industrial Welder (s) Surgeon ANGELY MARTE MD Industrial Welder n/a Pre-Operative Diagnosis Nonhealing Right Forearm Wounds Post-Operative Diagnosis same Operative Report Date of Procedure: Nov 30, 2022 Name of Procedure Performed: Debridement of Skin and Subcutaneous tissue of 3 wounds (1 cm by 0.5 cm) with simple closure of 2 1 cm wounds on right forearm/elbow. Description & Findings After obtaining informed consent and marking the patient in the preop holding area. The patient was taken to the operating room. Anesthesia was induced. Surgical timeout was taken. The right upper extremity was prepped and draped in usual sterile fashion. Pickups and scalpel were used to excise the margins of the more distal wounds. The most proximal wound had very tight and immobile skin. Rongeur and pickups were used to debride the skin edge was well as subcutaneous tissues which demonstrated significant calcification. The three wounds that were debrided measured 1 cm by 0.5 cm. All wounds were irrigated with normal saline. The distal 2 wounds were closed with 3-0 nylon in single layer fashion and totaled 2 cm of closure. The elbow wound proximally was packed with 1/4" iodoform gauze. Wounds were dressed with xeroform, 4x4s, Kerlix, and KURTIS Wrap. Patient tolerated the procedure well and was stable to the recovery room. Anesthesia Type General Estimated Blood Loss minimal Packing 1/4" iodoform Specimen(s) collected/removed None ANGELY MARTE MD Nov 30, 2022 09:02
[2022-11-30] MEDS ORDERED: SEVOFLURANE (ULTANE) 15 ML INHAL SOLN ONE (09:05)
[2022-11-30] MEDS ORDERED: ROCURONIUM 50 MG/5 ML (ZEMURON) VIAL IV ONE (09:05)
[2022-11-30] MEDS ORDERED: TRM50T PO ×2 (09:06)
[2022-11-30] MEDS ORDERED: ONDANSETRON 4 MG/2 ML (SDV) Z0FRAN IVP PRN (09:15)
[2022-11-30] MEDS ORDERED: morphine INJ 10 MG/ML 1ML (SYR OR VIAL) IVP ONE (09:15)
--- NOTE | 2022-11-30 09:55 | Anesthesia-General Post-Op ---
General Patient Condition Mental Status/LOC: Same as Preop Cardiovascular: Satisfactory Nausea/Vomiting: Absent Respiratory: Satisfactory Pain: Controlled Complications: Absent Post Op Complications Complications None Follow Up Care/Instructions Patient Instructions None needed. Anesthesia/Patient Condition Patient Condition Patient was seen in PACU and she was doing well, no complaints, stable vital signs, no apparent adverse anesthesia problems. No complications reported per nursing. CLEMENTINA PINK DO Nov 30, 2022 09:55
== END 2022-11-30 11:15 | disposition home or self-care (01) ==
LOC: SDC 05:54
PROVIDERS: ATTEND Orthopaedic Surgery
DX: T81.89XA Other complications of procedures, not elsewhere classified, initial encounter (principal); F17.210 Nicotine dependence, cigarettes, uncomplicated; Y84.8 Other medical procedures as the cause of abnormal reaction of the patient, or of later complication, without mention of misadventure at the time of the procedure
CPT/HCPCS: 87081

== ENCOUNTER 2022-12-06 14:07 | Outpatient (CLI) | payer OTHER ==
[~2022-12-06] VITALS: Ht 167.7 cm; Wt 92.1 kg
[~2022-12-06 14:07] MED LIST changes: +TRM50T PO
[2022-12-06] MEDS ORDERED: CLIN-144 PO (14:40)
[2022-12-07] MEDS ORDERED: AMOX1TAB12 PO (10:38)
[2022-12-07] MEDS ORDERED: OXC5T PO (10:38)
== END 2022-12-06 15:29 | disposition home or self-care (01) ==
LOC: PREOP 14:07
PROVIDERS: ATTEND Orthopaedic Surgery
DX: Z01.818 Encounter for other preprocedural examination (principal)

== ENCOUNTER 2022-12-07 07:19 | Day surgery (SDC) | payer OTHER ==
[2022-12-07] VITALS (12 sets, daily range): BP systolic 143–195; BP diastolic 79–101
[~2022-12-07] VITALS: Ht 167.7 cm; Wt 92.1 kg
[~2022-12-07 07:19] MED LIST changes: +CLIN-144 PO
--- NOTE | 2022-12-07 08:42 | Progress Note-Pre Operative ---
Pre-Operative Progress Note Date of Available H&P: Dec 06, 2022 Date H&P Reviewed: Dec 07, 2022 Time H&P Reviewed: 08:35 History & Physical: H&P Reviewed, Patient Examed, No changes noted Pre-Operative Diagnosis: Right Forearm Fracture ANGELY MARTE MD Dec 07, 2022 08:42
[2022-12-07] MEDS ORDERED: ONDANSETRON 4 MG/2 ML (SDV) Z0FRAN ONE (08:56)
[2022-12-07] MEDS ORDERED: fentaNYL INJ 100 MCG/2 ML AMP ONE (08:56)
[2022-12-07] MEDS ORDERED: SUCCINYLCHOLINE INJ 20 MG/1 ML 10 ML VIAL ONE (08:56)
[2022-12-07] MEDS ORDERED: MIDAZOLAM 2 MG/2 ML (VERSED) VIAL ONE (08:56)
[2022-12-07] MEDS ORDERED: proPOfol 200 MG/20 ML (DIPRIVAN) VIAL IV ONE (08:56)
[2022-12-07] MEDS ORDERED: LIDOCAINE PF 2% 5 ML (XYLOCAINE) VIAL ONE (08:56)
[2022-12-07] MEDS ORDERED: SEVOFLURANE (ULTANE) 15 ML INHAL SOLN ONE (10:22)
[2022-12-07] MEDS ORDERED: morphine INJ 10 MG/ML 1ML (SYR OR VIAL) IVP ONE (10:30)
[2022-12-07] MEDS ORDERED: ONDANSETRON 4 MG/2 ML (SDV) Z0FRAN IVP PRN (10:30)
[2022-12-07] MEDS ORDERED: OXC5T PO (10:38)
[2022-12-07] MEDS ORDERED: AMOX1TAB12 PO (10:38)
--- NOTE | 2022-12-07 10:44 | Operative Report - Ortho ---
Operative Report Surgeon (s)/Day Trader (s) Surgeon ANGELY MARTE MD Day Trader n/a Pre-Operative Diagnosis Right Forearm Infection Post-Operative Diagnosis same Operative Report Date of Procedure: Dec 07, 2022 Name of Procedure Performed: Debridement of Skin, Subcutaneous, and Fascia of Right Forearm 13 cm by 5 cm, Placement of Vacuum-Assisted Dressing to Right Forearm 13 cm by 5 cm Description & Findings After obtaining informed consent and marking the patient in the preop holding area. The patient was taken to the operating room. Anesthesia was induced. Surgical timeout was taken. The right upper extremity was prepped and draped in usual sterile fashion. Scalpel was used to connect all three wounds; distally, purulent material was encountered and a culture swab was obtained and sent. Rongeur and curette were used to debride the skin edge was well as subcutaneous tissues which demonstrated significant calcification. Pickups and scissors were used to excise and removed calcification. Curette was used to debride the fascia of calcification. The wound measured 13 cm by 5 cm. Wound was irrigated with normal saline by pulsatile lavage. Wound was dressed with a Whitefoam VAC sponge; 125 mm Hg of continous therapy was applied with good seal. Patient tolerated the procedure well and was stable to the recovery room. Anesthesia Type General Estimated Blood Loss minimal Packing Wound VAC Specimen(s) collected/removed Culture swab for gram stain, aerobic, and anaerobic ANGELY MARTE MD Dec 07, 2022 10:44
--- NOTE | 2022-12-07 11:17 | Anesthesia-General Post-Op ---
General Patient Condition Mental Status/LOC: Same as Preop Cardiovascular: Satisfactory Nausea/Vomiting: Absent Respiratory: Satisfactory Pain: Controlled Complications: Absent Post Op Complications Complications None Follow Up Care/Instructions Patient Instructions None needed. Anesthesia/Patient Condition Patient Condition Patient is doing well, no complaints, stable vital signs, no apparent adverse anesthesia problems. No complications reported per nursing. MARQUITA GOEL CRNA Dec 07, 2022 11:17
[2022-12-07] MEDS ORDERED: oxyCODONE/APAP 5/325MG (PERCOCET 5) TABLET PO ONE (11:30)
[2022-12-07] MEDS ORDERED: oxyCODONE/APAP 5/325MG (PERCOCET 5) TABLET ONE (11:38)
== END 2022-12-07 12:29 | disposition home or self-care (01) ==
LOC: SDC 07:19
PROVIDERS: ATTEND Orthopaedic Surgery
DX: L02.413 Cutaneous abscess of right upper limb (principal); K21.9 Gastro-esophageal reflux disease without esophagitis; F17.210 Nicotine dependence, cigarettes, uncomplicated
CPT/HCPCS: 87070; 87075; 87077; 87081; 87186; 87205

== ENCOUNTER → 2022-12-18 | Outpatient (CLI) | payer OTHER ==
[~2022-12-18] MED LIST changes: +AMOX1TAB12 PO; +OXC5T PO
== END ==
LOC: ORTHO 10:41
PROVIDERS: ATTEND Orthopaedic Surgery
DX: Z98.890 Other specified postprocedural states (principal)

== ENCOUNTER → 2023-01-01 | Outpatient (CLI) | payer OTHER | LOC: ORTHO 12:50 | PROVIDERS: ATTEND Orthopaedic Surgery | DX: Z47.89 Encounter for other orthopedic aftercare (principal) ==

== ENCOUNTER → 2023-01-15 | Outpatient (CLI) | payer OTHER | LOC: ORTHO 13:15 | PROVIDERS: ATTEND Orthopaedic Surgery | DX: Z47.89 Encounter for other orthopedic aftercare (principal) ==

== ENCOUNTER → 2023-02-05 | Outpatient (CLI) | payer OTHER | LOC: ORTHO 09:52 | PROVIDERS: ATTEND Orthopaedic Surgery | DX: Z47.89 Encounter for other orthopedic aftercare (principal) ==

== ENCOUNTER → 2023-06-20 | Outpatient (CLI) | payer OTHER ==
[~2023-06-20] MED LIST changes: -LOSA100T57 PO; +LOSA100T58 PO
== END ==
LOC: ORTHO 08:52
PROVIDERS: ATTEND Orthopaedic Surgery
DX: L02.413 Cutaneous abscess of right upper limb (principal); M77.11 Lateral epicondylitis, right elbow
CPT/HCPCS: 99213